=== PATIENT | female | born 1995 | race Caucasian/White ===

== ENCOUNTER 2021-01-05 14:15 | Outpatient (CLI) | payer OTHER, SELFPAY ==
[2021-01-05 19:16] LABS: Basophils Percent Auto 0.5 % (0.2-1.2); Eosinophils Absolute Auto 0.1 K/mm3 (0-0.3); Eosinophils Percent Auto 1.5 % (0-4.4); Hematocrit 39.3 % (37.0-47.0); Hemoglobin 13.7 g/dL (12.0-15.0); Immature Granulocyte Absolute 0.02 K/mm3 (0.00-0.031); Immature Granulocyte Percent A 0.2 % (0-0.5); Lymphocytes Absolute Auto 2.87 K/mm3 (0.9-3.2); Lymphocytes Percent Auto 33.4 % (18.3-44.2); Mean Corpuscular HGB Conc 34.9 g/dl (32-36); Mean Corpuscular Hemoglobin 31.6 pg (26-34); Mean Corpuscular Volume 90.6 fl (80-100); Mean Platelet Volume 9.2 fl (7.4-10.4); Monocytes Absolute Auto 0.5 K/mm3 (0.1-0.6); Monocytes Percent Auto 5.8 % (2.6-8.5); Neutrophils Percent Auto 58.6 % (45.5-73.1); Platelet Count Result 361 k/mm3 (150-375); Red Blood Count 4.34 M/mm3 (4.2-5.4); Red Cell Distribution Width 11.8 % (11.5-14.5); White Blood Count 8.6 K/mm3 (4.5-10.0)
[2021-01-05 19:22] LABS: Add Urine Microscopic? YES; Appearance Urine Cloudy (Clear); Bilirubin Urine Negative (Negative); Blood Urine Negative (Negative); Color Urine Yellow (Yellow); Glucose Urine UA Negative (Negative); Ketones Urine Negative (Negative); Leukocyte Esterase Ur Negative LEU/UL (NEGATIVE); Mucus Urine Rare /lpf; Nitrate Urine Negative (Negative); Protein Urine Negative (Negative); RBC Urine 0-2 /hpf (0-2); Specific Grav Ur 1.023 (1.001-1.035); Squamous Epithelial Cell Urine Many /hpf (Few); Urobilinogen Urine Negative mg/dL (<2.0); WBC Urine 0-3 /hpf (0-3)
[2021-01-05 22:34] LABS: Vitamin D 25 Hydroxy 17.8 ng/mL
[2021-01-05 22:47] LABS: Hepatitis B Surface Antigen Negative (Negative); Rubella IgG Antibody 11.2 IU/ML
[2021-01-05 22:56] LABS: HIV 1/2 Ab P24 Ag Result Negative (Negative)
[2021-01-05 23:04] LABS: Hepatitis C Virus Antibody Negative (Negative)
[2021-01-05 23:06] LABS: Hemoglobin A1C 5.9 % (<5.7)
[2021-01-07 15:38] LABS: Rapid Plasma Reagin Non-Reactive (NonReactive)
[2021-01-10 16:01] LABS: Hematocrit 43.5 % (35.0-45.0); Hemoglobin 13.7 g/dL (11.7-15.5); MCH 31.4 pg (27.0-33.0); MCV 99.5 fL (80.0-100.0); Red Blood Cell Count 4.37 Mill/uL (3.80-5.10)
[2021-01-16 11:44] LABS: CF Result NEGATIVE (NEGATIVE)
== END 2021-01-05 14:16 | disposition home or self-care (01) ==
LOC: ANHBWCLAB 14:16
PROVIDERS: Visit Provider Obstetrics & Gynecology
DX: Z34.90 Encounter for supervision of normal pregnancy, unspecified, unspecified trimester (principal); E11.9 Type 2 diabetes mellitus without complications; Z3A.00 Weeks of gestation of pregnancy not specified
CPT/HCPCS: 36415; 81001; 81220; 82306; 83021; 83036; 84443; 85025; 86592; 86703; 86762; 86787; 86803; 86850; 86900; 86901; 87086; 87340; G0432

== ENCOUNTER 2021-03-20 21:16 | Observation (INO) | payer OTHER, SELFPAY ==
[2021-03-20 21:47] VITALS: TEMP 36.6
[2021-03-20 21:48] VITALS: BP 119/58; PULSE 91
[2021-03-20 22:08] LABS: Add Urine Microscopic? YES; Appearance Urine Cloudy (Clear); Bacteria Urine Trace /hpf; Bilirubin Urine Negative (Negative); Blood Urine Negative (Negative); Calcium Oxalate Crystals Urine Many /hpf; Color Urine Yellow (Yellow); Glucose Urine UA Negative (Negative); Ketones Urine Negative (Negative); Leukocyte Esterase Ur 1+ LEU/UL (NEGATIVE); Mucus Urine Few /lpf; Nitrate Urine Negative (Negative); Protein Urine 1+ mg/dL (Negative); RBC Urine 0-2 /hpf (0-2); Squamous Epithelial Cell Urine Many /hpf (Few); Urobilinogen Urine Negative mg/dL (<2.0)
--- NOTE | 2021-03-20 22:19 | PC.NURSE ---
called Dr. Worthy notified pt admission for vaginal pressure and spotting. pt denies spotting at this time. and no contractions. UA result reported. SVE was ordered. if cervix closed, may discharge to home. follow up with Dr. Mahmood for culture result.
--- NOTE | 2021-04-10 09:52 | PM.OBTRLD ---
OB - Triage/Final Diagnosis Visit Information Comments/Additional reasons for admission: I have assessed the risk for this patient, Josiah Serrano, and determined that she would benefit from observation care. Evaluation Laboratory results: Laboratory Tests 03/20/21 21:50 Urine Color Yellow Urine Appearance Cloudy H Urine pH 5.0 Ur Specific [place] 1.030 Urine Protein 1+ H Urine Glucose (UA) Negative Urine Ketones Negative Ur Blood (Man) Negative Urine Nitrate Negative Urine Bilirubin Negative Urine Urobilinogen Negative Ur Leukocyte Esterase 1+ H Urine RBC 0-2 Urine WBC 10-15 H Ur Squamous Epith Cells Many H Calcium Oxalate Crystal Many Urine Bacteria Trace Urine Mucus Few H Final Diagnosis (1) Pelvic pressure in : Code(s): O26.899 - Other specified related conditions, unspecified trimester; R10.2 - Pelvic and perineal pain Status: Acute
== END 2021-03-20 22:40 | disposition home or self-care (01) ==
PROVIDERS: Admitting Provider Obstetrics & Gynecology; Visit Provider Obstetrics & Gynecology
DX: O26.892 Other specified pregnancy related conditions, second trimester (principal); R10.2 Pelvic and perineal pain; Z3A.21 21 weeks gestation of pregnancy
CPT/HCPCS: 81001; 87086; 87088; G0378; G0379

== ENCOUNTER 2021-04-18 15:05 | Outpatient (CLI) | payer OTHER, SELFPAY ==
[2021-04-18 19:54] LABS: Alanine Aminotransferase 12 U/L (4-35); Albumin Level 3.7 g/dL (3.5-5.1); Alkaline Phosphatase 65 U/L (38-126); Anion Gap 7 mmol/L (8-16); Aspartate Amino Transferase 18 U/L (14-36); Bilirubin,Total 0.3 mg/dL (0.2-1.3); Blood Urea Nitrogen 7 mg/dL (7-17); Calcium 9.8 mg/dL (8.4-10.2); Carbon Dioxide 22 mmol/L (22-30); Chloride 107 mmol/L (98-107); Estimated Glomerular Filt Rate > 60; Glucose 88 mg/dL (65-110); Potassium 4.1 mmol/L (3.4-5.0); Sodium 136 mmol/L (137-145)
[2021-04-18 20:01] LABS: Creatinine Urine 87.3 mg/dL; Total Protein Urine Random 6 mg/dL; Ur Ttl Prot Creatinine Ratio 0.07 mg/mg (0-0.20)
[2021-04-18 20:42] LABS: Hemoglobin A1C 5.2 % (<5.7)
== END 2021-04-18 15:06 | disposition home or self-care (01) ==
DX: O24.112 Pre-existing type 2 diabetes mellitus, in pregnancy, second trimester (principal); Z3A.23 23 weeks gestation of pregnancy
CPT/HCPCS: 36415; 80053; 82570; 83036; 84156; 84443

== ENCOUNTER 2021-05-11 14:53 | Outpatient (CLI) | payer OTHER, SELFPAY ==
[2021-05-11 19:11] LABS: Hematocrit 33.8 % (37.0-47.0); Hemoglobin 11.8 g/dL (12.0-15.0); Mean Corpuscular HGB Conc 34.9 g/dl (32-36); Mean Corpuscular Hemoglobin 31.6 pg (26-34); Mean Corpuscular Volume 90.6 fl (80-100); Mean Platelet Volume 9.9 fl (7.4-10.4); Platelet Count Result 291 k/mm3 (150-375); Red Blood Count 3.73 M/mm3 (4.2-5.4); Red Cell Distribution Width 12.5 % (11.5-14.5); White Blood Count 9.7 K/mm3 (4.5-10.0)
[2021-05-11 21:03] LABS: HIV 1/2 Ab P24 Ag Result Negative (Negative)
[2021-05-14 10:47] LABS: Rapid Plasma Reagin Non-Reactive (NonReactive)
== END 2021-05-11 14:54 | disposition home or self-care (01) ==
LOC: ANHBWCLAB 14:54
PROVIDERS: Visit Provider Obstetrics & Gynecology
DX: Z34.90 Encounter for supervision of normal pregnancy, unspecified, unspecified trimester (principal)
CPT/HCPCS: 36415; 85027; 86592; 86703; G0432

== ENCOUNTER 2021-06-20 12:12 | Observation (INO) | payer OTHER, SELFPAY ==
[2021-06-20 12:38] VITALS: BP 117/71; PULSE 106
[2021-06-20 13:24] LABS: Appearance Urine Clear (Clear); Bilirubin Urine Negative (Negative); Color Urine Yellow (Yellow); Glucose Urine UA 3+ mg/dL (Negative); Ketones Urine Negative (Negative); Leukocyte Esterase Ur Negative LEU/UL (Negative); Nitrate Urine Negative (Negative); Protein Urine Negative (Negative); Specific Grav Ur 1.025 (1.001-1.035); Urobilinogen Urine 0.2 mg/dL (<2.0)
[2021-06-20 13:27] LABS: Mucus Urine Rare /lpf; RBC Urine 0-2 /hpf (0-2); Squamous Epithelial Cell Urine Many /hpf (Few); WBC Urine 0-3 /hpf
[2021-06-20 13:28] LABS: Add Urine Microscopic? YES; Blood Urine Trace-Intact (Negative)
[2021-06-20 13:30] VITALS: TEMP 36.3
--- NOTE | 2021-06-20 14:00 | PC.NURSE ---
on unit, informed that pt came in for cramping. No contractions noted, UA WNL. NST reactive. Pt has an appt with tomorrow. Discharge orders received.
--- NOTE | 2021-06-20 14:03 | OBADM ---
This patient, Josiah Serrano, admitted to the OB room OB Post 115 for observation. Patient/family oriented to hospital policies and general routines including ID bracelet, bed and alarms, visiting hours, pain management, procedures, bathroom and other care routines, personal items, smoking policy, room service/diet, and visiting hours. Patient/Family are encouraged to report perceived risks to care and to ask questions if they do not understand what they are told or what they should do.
--- NOTE | 2021-07-10 09:47 | PM.OBTRLD ---
OB - Triage/Final Diagnosis Visit Information Comments/Additional reasons for admission: I have assessed the risk for this patient, Josiah Serrano, and determined that she would benefit from observation care. Evaluation Laboratory results: Laboratory Tests 06/20/21 13:05 Urine Color Yellow Urine Appearance Clear Urine pH 6.0 Ur Specific [place] 1.025 Urine Protein Negative Urine Glucose (UA) 3+ H Urine Ketones Negative Ur Blood (Man) Trace-intact Urine Nitrate Negative Urine Bilirubin Negative Urine Urobilinogen 0.2 Leukocyte Esterase Rfl Negative Urine RBC 0-2 Urine WBC 0-3 Ur Squamous Epith Cells Many H Urine Mucus Rare Final Diagnosis (1) Cramping affecting , antepartum: Code(s): O26.899 - Other specified related conditions, unspecified trimester; R10.9 - Unspecified abdominal pain Status: Acute
== END 2021-06-20 14:00 | disposition home or self-care (01) ==
PROVIDERS: Admitting Provider Student in an Organized Health Care Education/Training Program; Visit Provider Student in an Organized Health Care Education/Training Program
DX: O26.893 Other specified pregnancy related conditions, third trimester (principal); R10.9 Unspecified abdominal pain; Z3A.34 34 weeks gestation of pregnancy
CPT/HCPCS: 81001; G0378; G0379

== ENCOUNTER 2021-07-08 13:47 | Outpatient (RCR) | payer OTHER, SELFPAY ==
[2021-06-24 14:07] VITALS: BP 103/58; PULSE 87
[2021-07-01 15:03] VITALS: BP 112/63; PULSE 102
== END 2021-08-15 23:59 | disposition home or self-care (01) ==
LOC: ANHOBOP 13:47
PROVIDERS: Visit Provider Student in an Organized Health Care Education/Training Program
DX: O36.8130 Decreased fetal movements, third trimester, not applicable or unspecified (principal); Z3A.29 29 weeks gestation of pregnancy; O24.913 Unspecified diabetes mellitus in pregnancy, third trimester; Z3A.34 34 weeks gestation of pregnancy; Z3A.35 35 weeks gestation of pregnancy; Z3A.36 36 weeks gestation of pregnancy
CPT/HCPCS: 59025

== ENCOUNTER 2021-07-14 17:10 | Outpatient (CLI) | payer OTHER, SELFPAY ==
[2021-07-14 17:48] VITALS: BP 125/65; PULSE 95
== END 2021-07-14 17:48 | disposition home or self-care (01) ==
LOC: ANHOBOP 17:40 → ANHOBPP 17:41
PROVIDERS: Visit Provider Student in an Organized Health Care Education/Training Program
DX: O42.90 Premature rupture of membranes, unspecified as to length of time between rupture and onset of labor, unspecified weeks of gestation (principal); Z3A.00 Weeks of gestation of pregnancy not specified
CPT/HCPCS: 59025; 84112; 99199

== ENCOUNTER 2021-07-19 09:14 | Inpatient (IN) | payer OTHER, SELFPAY ==
--- NOTE | 2021-06-30 13:06 | PC.NURSE ---
Patient states baby is breech--Has an appointment with Dr Marlow on Saturday to make decision on external version or C/S Patient given pre-op paper work and requisition for pre-op lab draw
[2021-07-19] VITALS (112 sets, daily range): BP systolic 56–144; BP diastolic 26–125; PULSE 73–125; RESP 15–20; TEMP 36.1–37.2; O2SAT 92–100; BMI 45.4
--- NOTE | 2021-07-19 09:27 | PC.NURSE ---
Dr. Marlow called to check on pt. She was just informed by [facility] that they had sent the pt to L&D. Informed MD that pt has only been on the monitor for 5 mins, but so far I have FHT's 130 with moderate variability and one 15 beat accel. would like me to contact anesthesia to discuss possible available times for a C/S and then call her back so she can arrange her office as she is in the [place] office today.
--- NOTE | 2021-07-19 09:32 | PC.NURSE ---
Spoke with Dr. Skelton regarding this pt and he stated 1100 or 1330 would be better for anesthesia than 1200.
--- NOTE | 2021-07-19 09:33 | PC.NURSE ---
Dr. Marlow informed of offered C/S times. Also informed baby currently has minimal variability, no accels, and no decels. Plan is for 1100 then unless baby needs to come out sooner.
--- NOTE | 2021-07-19 09:39 | PC.NURSE ---
Dr. Marlow informed that when I told the pt the plan for doing her C/S at 1100 she became tearful because the father of baby is OOT and trying to get back here, but won't be here until noon. Variability still minimal at present. MD doesn't feel it is in baby's best interest to wait for him to arrive. Discussed with pt that it is much better to make sure that baby comes out healthy now, than to wait and wished we hadn't. Pt and father of baby verbalize understanding.
--- NOTE | 2021-07-19 10:00 | LDADM ---
This patient, Josiah Serrano, was admitted to Labor/Delivery/Recovery 120 on 07/19/21 at 09:14. Plans for surgery/ and pain management were discussed with patient. Patient/family oriented to hospital policies and general routines including ID bracelet, bed and alarms, visiting hours, pain management, procedures, bathroom and other care routines, personal items, smoking policy, room service/diet and guest tray routines, infant security routines, and visiting hours. Patient/Family are encouraged to report perceived risks to care and to ask questions if they do not understand what they are told or what they should do. See OBIX for further documentation.
--- NOTE | 2021-07-19 10:03 | PC.NURSE ---
Dr. Marlow informed baby now has moderate variability again with accels. states she has already cleared her office appointments for the morning and is on her way in. She will make a decision on whether we can wait to do C/S when she gets here.
[2021-07-19] MEDS: LACTATED RINGERS 1,000 ML 125 ML IV CONT (10:05)
[2021-07-19 10:21] LABS: Basophils Percent Auto 0.4 % (0.2-1.2); Eosinophils Absolute Auto 0.1 K/mm3 (0-0.3); Eosinophils Percent Auto 1.4 % (0-4.4); Hematocrit 37.9 % (37.0-47.0); Immature Granulocyte Absolute 0.07 K/mm3 (0.00-0.031); Immature Granulocyte Percent A 0.7 % (0-0.5); Lymphocytes Absolute Auto 2.45 K/mm3 (0.9-3.2); Lymphocytes Percent Auto 23.8 % (18.3-44.2); Mean Corpuscular HGB Conc 34.3 g/dl (32-36); Mean Corpuscular Hemoglobin 31.3 pg (26-34); Mean Corpuscular Volume 91.3 fl (80-100); Mean Platelet Volume 9.8 fl (7.4-10.4); Monocytes Absolute Auto 0.6 K/mm3 (0.1-0.6); Monocytes Percent Auto 6.1 % (2.6-8.5); Neutrophils Percent Auto 67.6 % (45.5-73.1); Platelet Count Result 265 k/mm3 (150-375); Red Blood Count 4.15 M/mm3 (4.2-5.4); Red Cell Distribution Width 12.9 % (11.5-14.5); White Blood Count 10.3 K/mm3 (4.5-10.0)
--- NOTE | 2021-07-19 10:28 | PC.NURSE ---
Dr. Marlow in room to see pt and reviewed monitor tracing. MD KELLY with delaying C/S for father of baby to arrive for delivery.
--- NOTE | 2021-07-19 10:31 | WPDANESEPPF ---
Anes - Initial Pre Proc Eval Procedure: Operation Date: 07/26/21 07:30 Proposed Procedures p Section - Zaina Marlow MD Date/Time: 07/19/21 10:31 Surgeon: Zaina Marlow MD Pre Op Diagnosis: C/S Breech Patient Data Age: 25 Gender: F Height: 1.57 m Weight: 112.7 kg Last Vital Signs Pulse 110 H 07/19/21 10:31 BP 111/70 07/19/21 10:31 Pulse Ox 99 07/19/21 10:18 Allergies Allergy/AdvReac Type Severity Reaction Status Date / Time insulin lispro Allergy Intermediate Rash Verified 07/13/21 15:20 [From Humalog U-100 Insulin] Home Medications Medication Instructions Recorded Confirmed Type prenat.vits,leti,awt-poqn-hhmxw 1 tablet PO DAILY 01/05/21 06/24/21 History flash glucose scanning reader #1 ea 02/23/21 05/11/21 Rx flash glucose sensor #1 ea 02/23/21 05/11/21 Rx aspirin 81 mg chewable tablet 81 mg PO DAILY 04/18/21 06/24/21 History subcutaneous insulin pump 04/18/21 05/11/21 History fluticasone propionate 2 spray INTRANASAL BID PRN 06/24/21 06/24/21 History hydroxyzine HCl 25 mg PO HS 06/24/21 06/24/21 History insulin aspart U-100 [Novolog See Rx Instructions .ROUTE .COMPLEX 06/24/21 History U-100 Insulin aspart] Laboratory Tests 07/19/21 07/19/21 10:15 10:15 WBC 10.3 K/mm3 H K/mm3 (4.5-10.0) RBC 4.15 M/mm3 L M/mm3 (4.2-5.4) Hgb 13.0 g/dL g/dL (12.0-15.0) Hct 37.9 % % (37.0-47.0) MCV 91.3 fl fl (80-100) MCH 31.3 pg pg (26-34) MCHC 34.3 g/dl g/dl (32-36) RDW 12.9 % % (11.5-14.5) Plt Count 265 k/mm3 k/mm3 (150-375) MPV 9.8 fl fl (7.4-10.4) Immature Gran % (Auto) 0.7 % H % (0-0.5) Neut % (Auto) 67.6 % % (45.5-73.1) Lymph % (Auto) 23.8 % % (18.3-44.2) [place] % (Auto) 6.1 % % (2.6-8.5) Eos % (Auto) 1.4 % % (0-4.4) Baso % (Auto) 0.4 % % (0.2-1.2) Lymph # (Auto) 2.45 K/mm3 K/mm3 (0.9-3.2) [place] # (Auto) 0.6 K/mm3 K/mm3 (0.1-0.6) Eos # (Auto) 0.1 K/mm3 K/mm3 (0-0.3) Baso # (Auto) 0.0 K/mm3 K/mm3 (0.0-0.1) Abs Immat Gran (auto) 0.07 K/mm3 H K/mm3 (0.00-0.031) Absolute Neuts (auto) 7.0 K/mm3 H K/mm3 (1.3-6.7) Absolute Nucleated RBC 0.0 K/mm3 K/mm3 (0.0-0.012) Nucleated RBC % 0.0 % % (0.0-0.2) RPR Pending Patient hx anesthesia problems: none Family hx anesthesia problems: none Results Review: All pre-operative results and documents have been reviewed as part of the pre-operative evaluation. [facility] Past Medical History Medical History Asthma Diabetes mellitus type 2 Ectopic x1 Missed x1 Surgical History Surgical History History of toe surgery for ingrown nail Family History Family History Mother Diabetes mellitus Social History Social History Smoking status: Never smoker Alcohol intake: never Substance use: never Spiritual care concerns: No Anes - Eval Final PreProcedure Day of Procedure 07/19/21 10:31 Patient weight: morbidly obese Heart: regular rate and rhythm Lungs: clear to auscultation Airway: Mallampati scale class II Neurological: alert and oriented Last oral intake: >/= 8 hours ASA classification: III Emergent: no Anesthetic plan: proceed Anesthesia type and monitoring: regional spinal and standard monitoring Results Review: All pre-operative results and documents have been reviewed as part of the pre-operative evaluation. Informed Consent: The patient's anesthetic plan and its attendant risks and benefits were discussed with the patient/family/POA. Questions were solicited and answers provided to the satisfaction of the patient/family/POA.
--- NOTE | 2021-07-19 12:09 | PM.IMHP ---
H&P: HPI History of Present Illness Date/Time: 07/19/21 12:09 Patient is a 25-year-old LMP 10/23/2020 currently 38 weeks 3 days gestation with JACOB 07/30/2021 who presented to labor and delivery directly from [facility]. Patient is dated by LMP consistent with ultrasound on 01/10/2021 at 11 weeks gestation. Patient has history of pregestational type 2 diabetes currently on insulin as well as morbid obesity. Patient was seen by [facility] today for routine testing. BPP was performed and was 4/8. Recommendation made for delivery today. Fetus also remains in breech presentation. In general, patient doing well today. Denies any vaginal bleeding, leakage of fluid, or contractions. Reports good movement. Chief Complaint: Intrauterine at 38w3d gestation Nonreassuring testing Pregestational Type II DM Breech presentation Obesity Review of Systems Review of Systems: All systems reviewed & are unremarkable except as noted in HPI and below Constitutional: Constitutional: Reports as per HPI and Reports no additional constitutional complaints Eyes: Eyes: Reports as per HPI and Reports no additional eye complaints ENT: Reports system reviewed and no additional complaints, except as documented and Reports as per HPI Cardiovascular: Cardiovascular: Reports as per HPI and Reports no additional cardiovascular complaints Respiratory: Respiratory: Reports as per HPI and Reports no additional respiratory complaints Gastrointestinal: Gastrointestinal: Reports as per HPI and Reports no additional gastrointestinal complaints Genitourinary: Genitourinary: Reports no additional female genitourinary complaints and Reports as per HPI Musculoskeletal: Musculoskeletal: Reports no additional musculoskeletal complaints and Reports as per HPI Integumentary/Breasts: Skin/Breast: Reports system reviewed and no additional complaints, except as docu and Reports as per HPI Neurologic: Reports system reviewed and no additional complaints, except as documented and Reports as per HPI Psychiatric: Psychiatric: Reports no additional psychiatric complaints and Reports as per HPI Endocrine: Endocrine: Reports no additional endocrine complaints and Reports as per HPI Hematologic/Lymphatic: Hematologic/Lymphatic: Reports no additional hematologic/lymphatic complaints and Reports as per HPI Allergic/Immunologic: Allergic/Immunologic: Reports no additional allergic/immunologic complaints and Reports as per HPI PMFSH Past Medical History Medical History Asthma Diabetes mellitus type 2 Ectopic x1 Missed x1 Surgical History Surgical History History of toe surgery for ingrown nail Family History Family History Mother Diabetes mellitus Social History Social History Smoking status: Never smoker Second hand tobacco smoke exposure: No Alcohol intake: never Substance use: never Spiritual care concerns: No Meds Home Medications and Allergies Home Medications Medication Instructions Recorded Confirmed Type prenat.vits,leti,iym-qeza-gomdv 1 tablet PO DAILY 01/05/21 07/19/21 History flash glucose scanning reader #1 ea 02/23/21 07/19/21 Rx flash glucose sensor #1 ea 02/23/21 07/19/21 Rx aspirin 81 mg chewable tablet 81 mg PO DAILY 04/18/21 07/19/21 History subcutaneous insulin pump 04/18/21 07/19/21 History hydroxyzine HCl 25 mg PO HS 06/24/21 07/19/21 History insulin aspart U-100 [Novolog See Rx Instructions .ROUTE .COMPLEX 06/24/21 07/19/21 History U-100 Insulin aspart] triamcinolone acetonide See Rx Instructions .ROUTE .COMPLEX 07/19/21 07/19/21 History Allergies Allergy/AdvReac Type Severity Reaction Status Date / Time insulin lispro Allergy Intermediate Rash Verified
[2021-07-19] MEDS: LACTATED RINGERS 1,000 ML 999 ML IV CONT (12:20)
--- NOTE | 2021-07-19 12:20 | WPDHPUPDATE1 ---
History and Physical Update Update Date/Time: 07/19/21 12:20 History and Physical has been reviewed, including an updated exam of the patient. There are NO changes in the patient's condition. Risks, benefits, and alternatives have been discussed and questions answered. Patient agrees to proceed with procedure.
--- NOTE | 2021-07-19 12:43 | PC.NURSE ---
Dr. Ivey confirmed breech presentation by U/S
--- NOTE | 2021-07-19 12:45 | PC.NURSE ---
Blood sugar 100 per Dexcom. Dexcom and insulin pump removed from abdomen.
[2021-07-19] MEDS: ceFAZolin 2 GM/D5W 50 ML 2 GM/50 ML BAG IVPB (13:28)
[2021-07-19] MEDS: KETOROLAC 30 MG/ML VIAL (*BKC) IV PUSH (14:45)
--- NOTE | 2021-07-19 16:12 | W.PM.PROC2 ---
Procedure Note - Detailed Date of Procedure 07/19/21 Pre-op Diagnosis Intrauterine gestation at 38w3d gestation Nonreassuring testing Breech presentation Pregestational Type II DM requiring insulin Obesity Post-op Diagnosis Same Procedure Performed Primary low transverse section via Pfannenstiel Surgeon Zaina Marlow MD Glass Science Engineer Concetta Ordoñez Anesthesia Spinal Findings Live male infant in double footling breech presentation, apgars 9/9, weighing 7 lbs 2 oz, clear amniotic fluid; heart-shaped uterus, possibly bicornuate, normal appearing ovaries and fallopian tubes bilaterally Description of Procedure The patient was taken to the operating room, where she self-transferred to the operating room table. Spinal anesthesia was administered and found to be adequate. The patient was placed in dorsal supine position with a leftward tilt. She was prepped and draped in the usual sterile fashion. Spinal anesthesia was tested and found to be adequate. A Pfannenstiel skin incision was made with a scalpel and carried through to underlying layer of fascia with the Bovie. The fascia was incised in the midline and the incision was extended laterally with the use of forceps and Chin scissors. The inferior aspect of the fascial incision was grasped with Nerissa clamps, elevated, and the underlying rectus muscle were dissected off with Chin scissors. Attention was then turned to the superior aspect of the fascial incision, which in a similar manner, was grasped with Nerissa clamps, elevated, and the underlying rectus muscles were also dissected off with Chin scissors. The rectus muscles were in the midline and the peritoneal cavity was entered bluntly. This incision was extended superiorly and inferiorly with good visualization of the bladder and care was taken to avoid blood vessels. An Zi retractor was inserted into the abdominal cavity and rolled to increase visualization. A bladder blade was inserted. The vesicouterine peritoneum was identified and incised sharply with Metzenbaum scissors. This incision was extended laterally with Metzenbaum scissors and a bladder flap was created digitally. The bladder blade was replaced. A low-transverse uterine incision was made with a scalpel. This incision was extended laterally with bandage scissors. Amniotomy was performed. Clear amniotic fluid was noted. The infant was noted to be in double footling breech presentation. Both feet were delivered through the uterine incision followed by the infant's buttocks. A blue towel was wrapped around and was slowly guided through incision to level of the scapulae. The was gently rotated to the left and the right upper extremity was delivered. The was then rotated to the right and similarly, the left upper extremity was delivered. The infant's head was gently flexed and delivered easily and atraumatically without difficulty. The 's nose and mouth were suctioned with bulb suction. The infant was crying spontaneously. The cord was clamped and cut and the infant was handed off to awaiting nursing staff. A segment of cord was collected for cord gases. Cord blood was also collected. The placenta was then delivered manually with gentle uterine massage. Uterus was unable to be exteriorized and cleared of all clots and debris. The uterine incision was reapproximated with 0 Vicryl in a running, locked fashion. A second imbricating layer using 0 Monocryl performed. Excellent hemostasis was noted. On inspection, the uterus appeared to be heart shaped. The ovaries and fallopian tubes appeared to be normal bilaterally. The gutters were cleared of all clots and debris. The uterine incision was inspected again and noted to be hemostatic. Hemaderm was applied across the uterine incision. Interceed was also applied across the uterine incision and anterior surface of the uterus. The peritoneum was reapproximated with 2-0 Monocryl. The fascia was then closed wit
--- NOTE | 2021-07-19 16:17 | PM.OBPRVD ---
OB - Delivery Note Procedure Delivery date: 07/19/21 Procedure: Procedures Operation Date: 07/19/21 12:45 Actual Procedure Side Surgeon p Section Zaina Marlow MD Events: Diabetes Mellitus Route of delivery: Prior to decision for section, ACOG/SMFM labor guidelines were considered and discussed with the patient and staff. Decision made to proceed with the section.: Yes Specimen: Yes (placenta and cord, cord blood and cord gases) Quantitative Blood Loss (ml): 430 Anesthesia type: Spinal Disposition: Floor Complications: No immediate complications [place] Baby Date of : 07/19/21 Time of : 14:18 Weeks of gestation at delivery: 38 (38.3) gender: Male Weight (pounds): 7 Weight (ounces): 2 presentation: breech (double footling breech) Placenta delivery description: Manual Removal Cord Vessel Description: 3 Vessels score one minute: 9 score five minutes: 9 AMG Delivery Billing Delivery Delivery: Delivery Charge
--- NOTE | 2021-07-19 16:21 | SUR.OPER ---
BP inaccurate and reads low with pt bending arm that has BP cuff on it while holding infant
[2021-07-19 16:51] LABS: Glucose Point of Care 95 mg/dl (65-105)
[2021-07-19] MEDS: fentaNYL CITRATE INJ (*CRX) 100 MCG/2 ML VIAL 25 MCG IV PUSH (17:29)
[2021-07-20 03:50] VITALS: BP 108/55; PULSE 95; RESP 16; TEMP 36.9
[2021-07-20 05:07] LABS: Basophils Percent Auto 0.3 % (0.2-1.2); Eosinophils Absolute Auto 0.1 K/mm3 (0-0.3); Eosinophils Percent Auto 1.1 % (0-4.4); Hematocrit 31.1 % (37.0-47.0); Hemoglobin 10.5 g/dL (12.0-15.0); Immature Granulocyte Absolute 0.05 K/mm3 (0.00-0.031); Immature Granulocyte Percent A 0.4 % (0-0.5); Lymphocytes Absolute Auto 2.04 K/mm3 (0.9-3.2); Lymphocytes Percent Auto 17.9 % (18.3-44.2); Mean Corpuscular HGB Conc 33.8 g/dl (32-36); Mean Corpuscular Hemoglobin 31.7 pg (26-34); Mean Platelet Volume 10.1 fl (7.4-10.4); Monocytes Absolute Auto 0.7 K/mm3 (0.1-0.6); Neutrophils Absolute Auto 8.5 K/mm3 (1.3-6.7); Neutrophils Percent Auto 74.3 % (45.5-73.1); Platelet Count Result 197 k/mm3 (150-375); Red Blood Count 3.31 M/mm3 (4.2-5.4); White Blood Count 11.4 K/mm3 (4.5-10.0)
[2021-07-20] MEDS: HYDROcodone/acetaminophen (*CRX) 5-325 MG TABLET 1 TAB PO (05:50)
[2021-07-20] MEDS: IBUPROFEN 600 MG TABLET PO ×3 (05:51→21:23)
[2021-07-20 07:25] VITALS: BP 96/50; PULSE 88; RESP 18; TEMP 37; O2SAT 98
[2021-07-20] MEDS: MULTIVIT/MIN/PREN/FOL AC/IRON TABLET 1 TAB PO (09:41)
[2021-07-20] MEDS: HYDROcodone/acetaminophen (*CRX) 10-325 MG TABLET 1 TAB PO ×3 (09:41→21:22)
[2021-07-20] MEDS: DOCUSATE SODIUM 100 MG CAPSULE PO ×2 (09:41→17:11)
--- NOTE | 2021-07-20 09:51 | WPDANLDPN2 ---
Anes-Prog Note L&D Date/Time: 07/20/21 09:51 Comfortable throughout: section Neuraxial method: spinal Epidural/Spinal procedure site: clean & non-tender Neuro status: Neuro function grossly intact. Cardiovascular status: normal Respiratory status: normal Airway patency: baseline Mental status: baseline Post-Op hydration status: normal Vital Signs: Last Vital Signs Temp 37.0 C 07/20/21 07:25 Pulse 88 07/20/21 07:25 Resp 18 07/20/21 07:25 BP 96/50 L 07/20/21 07:25 Pulse Ox 98 07/20/21 07:25 Pain score (VAS): 03/20 I/O: Intake & Output 07/19/21 07/20/21 07/20/21 23:59 07:59 15:59 Intake Total 900 Output Total 200 700 900 Balance -200 -700 0 Post-procedural complaints: none Patient feedback: Patient satisfied with anesthetic care.
--- NOTE | 2021-07-20 09:51 | WPDANLDNPN2 ---
Anes-Prog Note L&D-Neuraxial Date/Time: 07/20/21 09:51 Neuraxial medications: intrathecal PF morphine Opiod-related complaints: none Patient feedback: Patient satisfied with post-operative pain management.
--- NOTE | 2021-07-20 11:20 | P.PNOB_ITS ---
OB - PN: Subj Subjective Date/time seen: 07/20/21 11:20 Patient doing well this morning. Pain well controlled with medication. Denies any headache, chest pain, shortness of breath, nausea, or vomiting. Tolerating PO diet. Antonio catheter removed this morning. Patient has not yet voided. No ambulation yet. Passage of small amount of flatus. Minimal lochia. OB - PN: Obj Data Labs CBC & Chem 7: 07/20/21 04:00 Labs: Laboratory Results - last 24 hr 07/19/21 07/20/21 16:34 04:00 WBC 11.4 H RBC 3.31 L Hgb 10.5 L Hct 31.1 L MCV 94.0 MCH 31.7 MCHC 33.8 RDW 13.0 Plt Count 197 MPV 10.1 Immature Gran % (Auto) 0.4 Neut % (Auto) 74.3 H Lymph % (Auto) 17.9 L [place] % (Auto) 6.0 Eos % (Auto) 1.1 Baso % (Auto) 0.3 Lymph # (Auto) 2.04 [place] # (Auto) 0.7 H Eos # (Auto) 0.1 Baso # (Auto) 0.0 Abs Immat Gran (auto) 0.05 H Absolute Neuts (auto) 8.5 H Absolute Nucleated RBC 0.0 Nucleated RBC % 0.0 POC Capillary Glucose 95 OB - PN A/P Assessment and Plan (1) delivery delivered: Code(s): O82 - Encounter for delivery without indication Status: Acute Assessment and Plan: POD#1 doing well continue routine postoperative care encourage ambulation and use of IS declines circ Time Spent With Patient Time: Total time spent is greater than 50% in coordination of care (as documented) at patient's floor/unit and/or counseling patient: Exam Const: General: cooperative, comfortable and no acute distress GI: Inspection: non-distended and obesity GI Palp: Yes Soft to palpation and No Tenderness to palpation present (GI) Other: inc covered with bandage, bandage c/d/i Extrem: Right lower extremity: no edema Left lower extremity: no edema Other: no calf tenderness
[2021-07-20 12:04] VITALS: BP 128/68; PULSE 93; RESP 16; TEMP 36.5; O2SAT 97
[2021-07-20 21:25] VITALS: BP 107/65; PULSE 101; RESP 16; TEMP 36.5
[2021-07-21] MEDS: IBUPROFEN 600 MG TABLET PO ×3 (05:11→23:44)
[2021-07-21] MEDS: HYDROcodone/acetaminophen (*CRX) 10-325 MG TABLET 1 TAB PO ×5 (05:12→23:44)
[2021-07-21 06:29] LABS: Rapid Plasma Reagin Non-Reactive (NonReactive)
[2021-07-21 08:55] VITALS: BP 114/70; PULSE 88; RESP 18; TEMP 36.2; O2SAT 99
[2021-07-21] MEDS: MULTIVIT/MIN/PREN/FOL AC/IRON TABLET 1 TAB PO (09:17)
[2021-07-21] MEDS: DOCUSATE SODIUM 100 MG CAPSULE PO ×2 (09:18→15:27)
--- NOTE | 2021-07-21 10:17 | PM.OBPNVD ---
OB - PN: Subj Subjective Date/time seen: 07/21/21 10:17 Patient doing well this morning. Reports more pain today after pain medication wore off yesterday. Reasonably controlled with medication. Denies any headache, chest pain, shortness of breath, nausea, or vomiting. Tolerating PO diet. Voiding well. Ambulating without difficulty. Passing flatus. Minimal lochia. OB - PN: Obj Data Labs CBC & Chem 7: 07/20/21 04:00 Labs: Laboratory Results - last 24 hr 07/19/21 10:15 RPR Non-reactive OB - PN A/P Assessment and Plan (1) delivery delivered: Code(s): O82 - Encounter for delivery without indication Status: Acute Assessment and Plan: POD#2 doing well continue routine postoperative care encourage ambulation and use of IS anticipate dc tomorrow as pt would like further instruction and support Time Spent With Patient Time: Total time spent is greater than 50% in coordination of care (as documented) at patient's floor/unit and/or counseling patient: Exam Const: General: cooperative, healthy appearing, comfortable and no acute distress GI: Inspection: non-distended and obesity GI Palp: Yes Soft to palpation and No Tenderness to palpation present (GI) Other: inc c/d/i Extrem: Right lower extremity: no edema Left lower extremity: no edema Other: no calf tenderness
[2021-07-21 19:25] VITALS: BP 124/57; PULSE 98; RESP 16; TEMP 36.3
--- NOTE | 2021-07-22 06:35 | PM.OBPNVD ---
OB - PN: Subj Subjective Date/time seen: 07/22/21 06:35 She had decrease lochia. She reports adequate pain control. Tolerating regular diet. Positive flatus. Ambulating without problems. She is pumping mostly now. OB - PN: Obj Data Labs CBC & Chem 7: 07/20/21 04:00 OB - PN A/P Assessment and Plan (1) delivery delivered: Code(s): O82 - Encounter for delivery without indication Status: Acute Assessment and Plan: POD3- doing well. Discharge to home. Discharge precautions discussed. Time Spent With Patient Time: Total time spent is greater than 50% in coordination of care (as documented) at patient's floor/unit and/or counseling patient: Exam Const: General: comfortable and no acute distress Resp: Effort & Inspection: normal respiratory effort GI: Other: incision healing well no drainage, intact, no erythema Extrem: Other: tr edema LE bilat, nontender bilat Psych: Mental Status: mental status grossly normal Affect: normal affect
[2021-07-22] MEDS: DOCUSATE SODIUM 100 MG CAPSULE PO (07:53)
[2021-07-22] MEDS: MULTIVIT/MIN/PREN/FOL AC/IRON TABLET 1 TAB PO (07:53)
[2021-07-22] MEDS: HYDROcodone/acetaminophen (*CRX) 10-325 MG TABLET 1 TAB PO (07:53)
[2021-07-22] MEDS: SIMETHICONE 80 MG TAB.CHEW PO (07:53)
[2021-07-22] MEDS: IBUPROFEN 600 MG TABLET PO (07:54)
[2021-07-22 09:00] VITALS: BP 120/60; PULSE 70; PULSE 98; RESP 16; TEMP 36.8; O2SAT 99
[2021-07-24 10:29] VITALS: BP 110/60; PULSE 94; RESP 20; TEMP 36.8; O2SAT 97
--- NOTE | 2021-08-11 17:27 | PM.OBDSVD ---
DS: Admitting Diagnosis Discharge Date 07/22/21 Admitting Diagnosis Non reassuring testing Breech presentation OB - DS: Summary OB Procedures : None OB Procedures Intrapartum: OB Procedures: : None Peripartum Data Procedures: Procedures Operation Date: 07/19/21 12:45 Actual Procedure Side Surgeon p Section Zaina Marlow MD Time Spent with Patient Time attestation: Total time spent providing and/or coordinating discharge services: DS: Data Data Completed and Pending Completed studies during hospitalization: Pending at discharge 07/19/21 15:21 Surgical [PTH] Routine Discharge Plan Discharge Attending physician on discharge: Zaina Marlow Consulting providers: Duran Skelton ; Delisa Hall Discharging Clinician: Jeronimo Worthy Anticipated Discharge Date/Time: 07/22/21 06:39 Patient Disposition: Home, Self-Care Activity: may shower, may drive after 2 weeks and pelvic rest Diet: regular Discharge Instructions: Education: Mom and Baby Guide Given to: Mother Follow-Up: Call your delivering provider's office for an appointment to be seen in: 2 Weeks Mom and baby should come to the [facility] for the follow-up appointment. Appointment Date/Time: July 24, 2021 at 10:00 am What to expect at your follow-up visit: Blood Pressure Check Physical Assessment Call [phone] if you are unable to keep your appointment time. BREAST CARE: * Wear a snug supportive bra. * For engorgement discomfort: Breast Feeding: * Apply warm moist washcloths * Express milk as needed to relieve engorgement * Wear loose clothing Bottle Feeding: * May apply ice packs * For sore nipples: * Identify correct latch-on * Apply warm moist washcloths before and after nursing * Air dry nipples after nursing * May apply Lansinoh cream to nipples ABDOMINAL INCISION: (if applicable) * Allow incision to air dry * Do NOT use lotions for powders on your incision * When showering, allow soap and water to run over the incision, but do not wash incision EPISIOTOMY/PERINEAL CARE: * Until bleeding stops, use your roman bottle after urinating * Change your pad frequently throughout the day * No tub baths until seen by your physician - You may shower ACTIVITY: * Rest as much as possible. * Do not exercise or lift anything heavier than your baby (such as laundry or other children.) * Avoid stairs or driving as much as possible for 2 weeks. * Do not put anything into the vagina. No douching, tampons, or sexual activity until seen by physician. NOTIFY PHYSICIAN IF YOU HAVE ANY QUESTIONS OR IF ANY OF THE FOLLOWING SYMPTOMS OCCUR: * If your incision becomes red, swollen, or more painful than what you have experienced in the hospital. * If your vaginal bleeding becomes foul smelling. * If your vaginal bleeding becomes more heavy than a period or if your bleeding changes from the color it is now to bright red. However, you may pass an occasional walnut-sized clot once or twice for the first week . * If you experience a sharp, shooting pain in your calves. * If you discover a hard, reddened area on your breast or if you experience flu-like symptoms. DIET: * Eat regular, well-balanced meals. * Drink plenty of fluids daily. If , drink to thirst. Post instruction sheet. Pelvic rest for 4-6 weeks. May take over the counter Ibuprofen or Tylenol for pain. Call if saturating more than a pad an hour, leg redness, pain and swelling, temperature>100.4. No strenuous activity. Patient Instructions: Caring for Your Baby (DC), (DC) Stand Alone Forms: General Discharge Information Follow-up/Referrals: Zaina Marlow MD [Physician] - 2 Weeks (Call for appointment) Discharge Medications: New hydrocodone-acetaminop
== END 2021-07-22 12:00 | disposition home or self-care (01) | DRG 540 ==
LOC: ANHLDR 10:07 → ANHOB2 07-20 09:56 → ANHLDR 07-24 11:37 → ANHOB2 07-24 11:37
PROVIDERS: Admitting Provider Student in an Organized Health Care Education/Training Program; Visit Provider Obstetrics & Gynecology
DX: O32.8XX0 Maternal care for other malpresentation of fetus, not applicable or unspecified (principal); Z37.0 Single live birth; Z3A.38 38 weeks gestation of pregnancy; O24.12 Pre-existing type 2 diabetes mellitus, in childbirth; O99.214 Obesity complicating childbirth; E66.01 Morbid (severe) obesity due to excess calories; O34.03 Maternal care for unspecified congenital malformation of uterus, third trimester; Q51.3 Bicornate uterus; O99.892 Other specified diseases and conditions complicating childbirth; O28.8 Other abnormal findings on antenatal screening of mother
CPT/HCPCS: 36415; 82948; 85025; 86592; 86850; 86900; 86901; 88307; A9270; J0131; J0690; J1885; J2274; J2405; J2590; J3010; J7120

== ENCOUNTER 2021-08-04 19:28 | Emergency (ER) | payer OTHER, SELFPAY ==
[2021-08-04 19:30] VITALS: BP 133/73; PULSE 81; RESP 18; TEMP 36.3; O2SAT 100
[2021-08-04 20:11] LABS: Glucose Point of Care 85 mg/dl (65-105)
--- NOTE | 2021-08-04 20:45 | ED.WOUNDLAC ---
HPI - Wound/Laceration General Chief Complaint: Wound/Laceration Stated Complaint: July 19 csection, concerned for infection at site Time Seen by Provider: 08/04/21 19:38 History of Present Illness HPI narrative: Patient is a 25-year-old female who presents ER with concerns for infection of the scar. Patient has section on 07/19/2021. Her service advocate contact is Dr. Marlow. She noticed recently a foul odor and discharge from the area. Mild discomfort to touch. No fevers or chills or sweats. Concerned there is been some drainage as well. No abdominal pain/nausea/vomiting. Reports mild dysuria without urinary frequency or urgency. Still has some lochia since the delivery. Patient is a type II diabetic but has not been checking her sugars. Related Data Home Medications Medication Instructions Recorded Confirmed prenat.vits,leti,tve-pcpq-fezbl 1 tablet PO DAILY 01/05/21 07/19/21 subcutaneous insulin pump 04/18/21 07/19/21 insulin aspart U-100 100 unit/mL See Rx Instructions .Route .COMPLEX 06/24/21 07/19/21 subcutaneous solution (Novolog U-100 Insulin aspart) triamcinolone acetonide 0.1 % See Rx Instructions .Route .COMPLEX 07/19/21 07/19/21 topical ointment Allergies Allergy/AdvReac Type Severity Reaction Status Date / Time insulin lispro Allergy Intermediate Rash Verified 07/26/21 09:46 [From Humalog U-100 Insulin] Review of Systems Review of Systems: All systems reviewed & are unremarkable except as noted in HPI and below Constitutional: Constitutional: Denies chills, Denies fatigue and Denies fever(s) Gastrointestinal: Gastrointestinal: Denies abdominal pain, Denies nausea and Denies vomiting Genitourinary: Genitourinary: Denies abnormal vaginal bleeding, Denies hematuria, Denies nocturia and Reports dysuria Integumentary/Breasts: Skin/Breast: Reports erythema and Reports skin ulcer PMFSH Past Medical History Medical History Asthma Delivery by section for footling breech presentation Diabetes mellitus type 2 Ectopic x1 Missed x1 Surgical History Surgical History History of toe surgery for ingrown nail Family History Family History Mother Diabetes mellitus Social History Social History Smoking status: Never smoker Second hand tobacco smoke exposure: No Alcohol intake: never Substance use: never Spiritual care concerns: No Exam Narrative: GENERAL: Well-appearing, well-nourished, and in no acute distress. HEAD: Normocephalic, atraumatic. CHEST: Clear to auscultation. No respiratory distress. HEART: Regular rate and rhythm. Normal peripheral pulses. ABDOMEN: Soft, nontender, nondistended. EXTREMITIES: Normal range of motion. No edema. SKIN: Warm, dry. scar with small wound dehiscence on the left side. Surrounding induration noted. No cellulitis. There is yeast dermatitis noted with foul odor. NEURO: Alert and oriented x3. PSYCH: Normal mood and affect. Course Course Emergency Course: Discussed with Dr. Marlow. Will place on keflex and nystatin powder. Vital Signs Vital signs: Vital Signs Temperature 97.4 F L 08/04/21 19:30 Pulse Rate 81 08/04/21 19:30 Respiratory Rate 18 08/04/21 19:30 Blood Pressure 133/73 08/04/21 19:30 Pulse Oximetry 100 08/04/21 19:30 Oxygen Delivery Room Air 08/04/21 19:30 Temperature 97.4 F L 08/04/21 19:30 Pulse Rate 81 08/04/21 19:30 Respiratory Rate 18 08/04/21 19:30 Blood Pressure 133/73 08/04/21 19:30 Pulse Oximetry 100 08/04/21 19:30 Oxygen Delivery Room Air 08/04/21 19:30 MDM - Wound/Laceration Lab Data Labs: Lab Results 08/04/21 08/04/21 Range/Units 20:07 20:23 POC Capillary Glucose 85
[2021-08-04 20:52] LABS: Appearance Urine Slightly Cloudy (Clear); Color Urine Yellow (Yellow)
[2021-08-04 20:54] LABS: Add Urine Microscopic? YES; Bilirubin Urine Negative (Negative); Blood Urine 3+ (Negative); Glucose Urine UA Negative (Negative); Ketones Urine Negative (Negative); Leukocyte Esterase Ur 2+ LEU/UL (Negative); Nitrate Urine Negative (Negative); Protein Urine Negative (Negative); Specific Grav Ur 1.015 (1.001-1.035); Urobilinogen Urine 0.2 mg/dL (<2.0)
[2021-08-04 20:57] LABS: Bacteria Urine Trace /hpf; Mucus Urine Rare /lpf; RBC Urine 51-75 /hpf (0-2); Squamous Epithelial Cell Urine Moderate /hpf (Few); WBC Urine 16-20 /hpf
== END 2021-08-04 21:58 | disposition home or self-care (01) ==
PROVIDERS: Emergency Provider Emergency Medicine
DX: N39.0 Urinary tract infection, site not specified (principal); L30.9 Dermatitis, unspecified
CPT/HCPCS: 81001; 82948; 87086; 99283

== ENCOUNTER 2023-04-06 11:17 | Outpatient (CLI) | payer OTHER, SELFPAY ==
[2023-04-06 11:34] LABS: Basophils Percent Auto 0.5 % (0.2-1.2); Eosinophils Absolute Auto 0.3 K/mm3 (0-0.3); Eosinophils Percent Auto 3.3 % (0-4.4); Hematocrit 41.4 % (37.0-47.0); Hemoglobin 13.8 g/dL (12.0-15.0); Immature Granulocyte Absolute 0.02 K/mm3 (0.00-0.031); Immature Granulocyte Percent A 0.3 % (0-0.5); Lymphocytes Absolute Auto 2.72 K/mm3 (0.9-3.2); Lymphocytes Percent Auto 35.9 % (18.3-44.2); Mean Corpuscular HGB Conc 33.3 g/dl (32-36); Mean Corpuscular Hemoglobin 29.7 pg (26-34); Mean Corpuscular Volume 89.2 fl (80-100); Monocytes Absolute Auto 0.5 K/mm3 (0.1-0.6); Monocytes Percent Auto 6.7 % (2.6-8.5); Neutrophils Percent Auto 53.3 % (45.5-73.1); Platelet Count Result 312 k/mm3 (150-375); Red Blood Count 4.64 M/mm3 (4.2-5.4); Red Cell Distribution Width 12.3 % (11.5-14.5); White Blood Count 7.6 K/mm3 (4.5-10.0)
[2023-04-06 11:55] LABS: Alanine Aminotransferase 20 U/L (6-35); Albumin Level 4.2 g/dL (3.5-5.1); Alkaline Phosphatase 89 U/L (38-126); Anion Gap 7 mmol/L (8-16); Aspartate Amino Transferase 21 U/L (14-36); Bilirubin,Total 0.7 mg/dL (0.2-1.3); Blood Urea Nitrogen 8 mg/dL (7-17); Calcium 9.3 mg/dL (8.4-10.2); Carbon Dioxide 27 mmol/L (22-30); Chloride 104 mmol/L (98-107); Cholesterol 232 mg/dL (0-200); Estimated Glomerular Filt Rate > 60; Glucose 133 mg/dL (65-110); HDL Direct 32 mg/dL; Potassium 4.2 mmol/L (3.4-5.0); Sodium 138 mmol/L (137-145); Triglycerides 173 mg/dL (<150)
[2023-04-06 12:06] LABS: LDL Cholesterol Direct 160 mg/dL
[2023-04-06 16:31] LABS: Hemoglobin A1C 7.6 % (<5.7)
== END 2023-04-06 11:18 | disposition home or self-care (01) ==
LOC: ANHLAB 11:20
PROVIDERS: PCP Internal Medicine; Visit Provider Nurse Practitioner
DX: E11.9 Type 2 diabetes mellitus without complications (principal); Z13.29 Encounter for screening for other suspected endocrine disorder; Z13.220 Encounter for screening for lipoid disorders
CPT/HCPCS: 36415; 80053; 80061; 83036; 85025

== ENCOUNTER 2023-04-28 15:12 | Emergency (ER) | payer OTHER, SELFPAY ==
[2023-04-28 15:30] VITALS: BP 149/71; PULSE 117; RESP 18; TEMP 36.3; O2SAT 98
--- NOTE | 2023-04-28 15:35 | ED.URI ---
HPI - URI/Sore Throat General Chief Complaint: Upper Respiratory Infection Stated Complaint: Congestion/Cough/Sore Throat History of Present Illness HPI Narrative: Patient presents with nonproductive cough nasal congestion and body aches. Related Data Home Medications Medication Instructions Recorded Confirmed vit no.95-ferrous 1 tablet PO DAILY 04/28/23 04/28/23 fumarate 28 mg-folic acid 800 mcg tablet () Allergies Allergy/AdvReac Type Severity Reaction Status Date / Time insulin lispro Allergy Intermediate Rash Verified 04/28/23 15:45 [From Humalog U-100 Insulin] Review of Systems Review of Systems: CONSTITUTIONAL: Denies chills, or sweats. Reports fever and generalized body aches EYES: Denies visual changes, redness, or discharge. ENT: Denies otalgia. Reports nasal congestion runny nose and sore throat CARDIOVASCULAR: Denies chest pain, palpitations, or edema. RESPIRATORY: Denies dyspnea. Reports occasional cough GASTROINTESTINAL: Denies abdominal pain, nausea, vomiting, or diarrhea. GENITOURINARY: Denies dysuria or hematuria. SKIN: Denies rash or itching. MUSCULOSKELETAL: Denies back pain, joint pain, or myalgia. Reports generalized body aches NEUROLOGIC: Denies headache, numbness, or weakness. PSYCHIATRIC: Denies anxiety or depression. [facility] Past Medical History Medical History (Updated 04/28/23 @ 15:45 by KASANDRA Obrien) Asthma section wound complication Delivery by section for footling breech presentation Diabetes mellitus type 2 Ectopic x1 Hyperlipidemia Missed x1 Surgical History Surgical History Delivery by section 07/09/21 History of toe surgery for ingrown nail Family History Family History Mother Diabetes mellitus Social History Social History Smoking status: Never smoker Second hand tobacco smoke exposure: No Alcohol intake: never Substance use: never Lack of Transportation: No Lack of Food: Never True Current Housing: I Have Housing Concerned About Future Housing: No Difficulty Paying Gas/Electric Bills: YES Difficulty Paying for Meds: No Currently Unemployed: No Education: High School Diploma/GED Difficulty w/ Childcare or Family Care: No Spiritual care concerns: No Comments At time of signature, agree with nursing past medical, surgical, social and family history. There is no relevant family history pertinent to the presenting complaint Exam Narrative: The patient is a well-developed, well-nourished in no acute distress. SKIN: Skin is warm and dry without erythema, swelling or exudate. There is good turgor. No tenting. HEAD: Atraumatic. Normocephalic. No temporal or scalp tenderness. EYES: Moist and bright. Sclera and conjunctivae normal. No discharge. PERRLA. Extraocular motions intact. Gross visual acuity intact. EARS: Pinna is normal shape and contour. Clear external auditory canals. TM pearly capone with good cone of light, no erythema or suppuration. Bilateral cerumen noted no gross hearing deficit. NOSE: pink, moist mucosa with good air movement. Clear rhinorrhea without nasal flaring. Septum midline. Mouth: moist mucous membranes. THROAT; mild erythema noted to posterior oropharynx with moderate postnasal drainage. Without exudate or ulceration.. Uvula midline. Normal movement of soft palate. NECK: Supple and nontender with full range of motion without discomfort. No meningeal signs. LUNGS: Equal and bilateral breath sounds without wheezes, rales or rhonchi. CHEST: The chest wall is without retractions or use of accessory muscles. HEART: Has a regular rate and rhythm without murmur, gallops, click or rub. ABDOMEN: Soft, nontender with positive active bowel sounds. No rebound tenderness. EXTR
== END 2023-04-28 15:58 | disposition home or self-care (01) ==
PROVIDERS: Emergency Provider Nurse Practitioner Family; PCP Nurse Practitioner
DX: U07.1 COVID-19 (principal); E78.5 Hyperlipidemia, unspecified
CPT/HCPCS: 87426; 87804; 99213; G0463

== ENCOUNTER 2023-06-19 15:05 | Outpatient (CLI) | payer OTHER, SELFPAY ==
[2023-06-19 16:24] LABS: HIV 1/2 Ab P24 Ag Result Negative (Negative)
[2023-06-19 18:32] LABS: Hepatitis B Surface Antigen Negative (Negative)
[2023-06-19 18:50] LABS: Hepatitis C Virus Antibody Negative (Negative)
[2023-06-20 09:02] LABS: Rapid Plasma Reagin Non-Reactive (NonReactive)
== END 2023-06-19 15:06 | disposition home or self-care (01) ==
LOC: ANHLAB 15:06
PROVIDERS: PCP Nurse Practitioner; Visit Provider Nurse Practitioner Family
DX: Z11.3 Encounter for screening for infections with a predominantly sexual mode of transmission (principal)
CPT/HCPCS: 36415; 86592; 86703; 86803; 87340; G0432

== ENCOUNTER 2023-08-24 13:13 | Outpatient (RCR) | payer OTHER, SELFPAY ==
[2023-08-22 11:45] LABS: Beta HCG Quantitative 33.95 mIU/ML
[2023-08-24 14:33] LABS: Beta HCG Quantitative 58.26 mIU/ML
== END 2023-11-20 23:59 | disposition home or self-care (01) ==
LOC: ANHLAB 13:13
PROVIDERS: PCP Nurse Practitioner; Visit Provider Nurse Practitioner Women's Health
DX: O26.851 Spotting complicating pregnancy, first trimester (principal); O26.21 Pregnancy care for patient with recurrent pregnancy loss, first trimester; Z3A.00 Weeks of gestation of pregnancy not specified
CPT/HCPCS: 36415; 84702

== ENCOUNTER 2023-08-27 12:18 | Outpatient (CLI) | payer OTHER, SELFPAY ==
[2023-08-27 13:49] LABS: Beta HCG Quantitative 7.68 mIU/ML
== END 2023-08-27 12:19 | disposition home or self-care (01) ==
PROVIDERS: PCP Nurse Practitioner; Visit Provider Obstetrics & Gynecology Gynecology
DX: O26.21 Pregnancy care for patient with recurrent pregnancy loss, first trimester (principal); O26.851 Spotting complicating pregnancy, first trimester
CPT/HCPCS: 36415; 84702

== ENCOUNTER 2023-12-02 22:51 | Emergency (ER) | payer OTHER, SELFPAY ==
[2023-12-02 23:02] VITALS: BP 119/73; PULSE 93; RESP 14; TEMP 36.4; O2SAT 98
[2023-12-03 00:07] LABS: Influenza A QL RT-PCR Negative (Negative); Influenza B QL RT-PCR Negative (Negative); RSV RNA, RT-PCR Negative (Negative); SARS-CoV-2 RNA PCR Negative (Negative)
[2023-12-03 00:12] VITALS: BP 119/73; PULSE 93; RESP 14; TEMP 36.4; O2SAT 98
--- NOTE | 2023-12-03 00:57 | ED.FEMALEGU ---
HPI - Female Genitourinary General Chief complaint: TREE PULLER Stated complaint: 13 weeks vaginal bleeding, URI Time Seen by Provider: 12/03/23 00:20 History of Present Illness HPI Narrative: Patient is a 28-year-old female who presents to the emergency department this evening complaining of vaginal bleeding. Patient states that she is approximately 12 weeks with and follows up with maternal medicine at [facility] in [place]. Patient states that approximately 1 week ago she had vaginal spotting bleeding/spotting and went to the emergency department at [facility] and had an ultrasound performed which revealed subchorionic hemorrhages otherwise no acute process. Both babies had good heart rates. Patient then called [facility] OB earlier today and informed him that she is still having the vaginal bleeding which has resolved but then started again. Patient states that the bleeding is not heavy and is spotting. OB told her that she needs to go to the emergency department for further evaluation. Patient does not know what her Rh factor is but states that she was not given any medications. Patient denies any additional symptoms or concerns at this time. Related Data Allergies Allergy/AdvReac Type Severity Reaction Status Date / Time insulin lispro Allergy Intermediate Rash Verified 06/19/23 14:50 [From Humalog U-100 Insulin] Review of Systems Review of Systems: All systems are reviewed and are negative unless stated otherwise in the HPI. [facility] Past Medical History Medical History Asthma section wound complication Delivery by section for footling breech presentation Diabetes mellitus type 2 Ectopic x1 Hyperlipidemia Missed x1 Surgical History Surgical History Delivery by section 07/09/21 History of toe surgery for ingrown nail Family History Family History Mother Diabetes mellitus Social History Social History Smoking status: Never smoker Second hand tobacco smoke exposure: No Alcohol intake: never Substance use: never Lack of Transportation: No Lack of Food: Never True Current Housing: I Have Housing Concerned About Future Housing: No Difficulty Paying Gas/Electric Bills: YES Difficulty Paying for Meds: No Currently Unemployed: No Education: High School Diploma/GED Difficulty w/ Childcare or Family Care: No Spiritual care concerns: No Exam Narrative: General: Alert, awake, afebrile, in no acute distress. HEENT: PERRL, no rhinorrhea, no post nasal drip, oropharynx clear. Cardiovascular: Regular rate and rhythm, no murmurs, rubs or gallops, no peripheral edema. Respiratory: Clear to auscultation bilaterally, no tachypnea, no wheezing, no rhonchi, no rubs, no respiratory distress. Abdomen: Soft, nontender, nondistended, no rebound, no guarding, no peritoneal signs. Musculoskeletal: No joint swelling or deformity, normal muscle tone. Skin: No rashes or petechia, no signs of infection. Neurological: Alert and oriented to person, place, and time. Follows all commands. No focal deficits, speech is clear and fluent. Course Vital Signs Vital signs: Vital Signs Temperature 97.6 F 12/02/23 23:02 Pulse Rate 93 12/02/23 23:02 Respiratory Rate 14 12/02/23 23:02 Blood Pressure 119/73 12/02/23 23:02 Pulse Oximetry 98 12/02/23 23:02 Oxygen Delivery Room Air 12/02/23 23:02 Temperature 97.6 F 12/03/23 00:12 Pulse Rate 70 12/03/23 01:56 Respiratory Rate 16 12/03/23 01:56 Blood Pressure 112/78 12/03/23 01:56 Pulse Oximetry 97 12/03/23 01:56 Oxygen Delivery Room Air 12/03/23 00:12 MDM - Female Genitourinary MDM Narrative Medical decision
[2023-12-03 01:56] VITALS: BP 112/78; PULSE 70; RESP 16; O2SAT 97
== END 2023-12-03 01:57 | disposition home or self-care (01) ==
PROVIDERS: Emergency Provider Emergency Medicine; PCP Nurse Practitioner
DX: O20.0 Threatened abortion (principal); Z3A.12 12 weeks gestation of pregnancy
CPT/HCPCS: 87637; 99283

== ENCOUNTER 2024-09-23 13:46 | Outpatient (CLI) | payer OTHER, SELFPAY ==
--- OUTSIDE RECORDS SUMMARY | 2024-09-23 13:51 | XMS_ITS | Clinical Summary ---
Author Organization [employer] [facility] Address [address] [place] [address] Care Team Providers Care Linseed Oil Order Filler Name Role Phone Unavailable Primary Care Provider Unavailabl e Source Comments [facility],non-owned Affiliates and Associated Physician Practices is amultiple site organization consisting of ambulatory clinics and hospital sitesin [place], [place], [place] and [place]. This disclosure is being madepursuant to the Care Everywhere program and may not contain all information available regarding this patient. Last updated 17.[employer] Allergies Active Allergy Reactions Criticality Noted Date Comments Insulin Lispro Rash,Itching Medium 07/05/2021 Novolog is fine to use per patient, no reaction Medications * This document contains information received from the source organization and may not represent a complete record from that organization. * Be aware that medications may not be up to date on this document. Alwaysverify current medications with the patient. blood glucose (ONETOUCH VERIO) test strip Use 1 (one) strip 4 times daily 100 strip 5 1 Active Additional Information Patient not taking.Reported on 03/10/2024 Blood Glucose Monitoring Suppl (ONETOUCH VERIO FLEX SYSTEM) w/Device KIT Use 1 kit as directed 1 kit 1 1 Active Additional Information Patient not taking.Reported on 03/10/2024 Insulin Disposable Pump (OMNIPOD DASH 5 PACK PODS) MISC Use 1 packet as directed Apply 1 new pod every 3 days 2 Each 2 Active Continuous Blood Gluc Battery Plate Assembler (FREESTYLE LIDIA READER) REHANA Use 1 Each as directed 1 device 2 Active Vit-Fe Ihk-AQ-Znzmw (MOVEMENT EDUCATION SPECIALIST-PNV-DHA) 28-1-215.8 MG CAPS Take 1 tablet by mouth once daily 30 capsule 11 2 Active fluticasone propionate (FLONASE) 50 MCG/ACT nasal spray [place] 2 (two) sprays into each nostril once daily 1 Each 11 2 Active Additional Information Patient not taking.Reason: Patient adjusted, Reported on 04/14/2024 hydrocortisone, rectal, (ANUSOL-HC) 2.5 % creamIndications :anal irritation Insert into the rectum at bedtime Reasons: anal irritation 28 g 5 2 Active Additional Information Patient not taking.Reason: Patient adjusted, Reported on 04/14/2024 doxylamine (UNISOM) 25 MG tablet Take 1 (one) tablet by mouth nightly as needed for Insomnia 30 tablet 5 2 Active Additional Information Patient not taking.Reason: Patient adjusted, Reported on 04/14/2024 hydrOXYzine HCl (ATARAX) 25 MG tabletIndication s:Anxiety Take 1-2 tablets at night as needed for anxiety/insomni a Reasons: Feeling Anxious 60 tablet 2 2 Active Additional Information Patient not taking.Reason: Patient adjusted, Reported on 04/14/2024 triamcinolone acetonide (KENALOG) 0.1 % ointmentIndicati ons:Other specified dermatitis Apply to affected areas on both hands up to twice daily as needed. 30 days supply. 80 g 1 2 Active Additional Information Patient not taking.Reason: Patient adjusted, Reported on 04/14/2024 pyridoxine (Vitamin B-6) 25 MG tablet Take 2 (two) tablets by mouth 3 times daily 30 tablet 3 4 Active Additional Information Patient not taking.Reason: Patient adjusted, Reported on 04/14/2024 doxylamine (Unisom) 25 MG tablet Take 1 (one) tablet by mouth 3 times daily as needed (nausea) 30 tablet 3 4 Active Additional Information Patient not taking.Reason: Patient adjusted, Reported on 04/14/2024 famotidine (Pepcid) 20 MG tablet Take 1 (one) tablet by mouth every 12 hours for 30 days 60 tablet 4 Active acetone,urine, (Ketostix) strip Use to test for ketones in urine when blood glucose is > 200 mg/dl 25 strip 5 4 Active Additional Information Patient not taking.Reason: Patient adjusted, Reported on 01/14/2024 Insulin Pen Needle 32G X 4 MM MISCIndications: Type 2 diabetes mellitus affecting in first trimester, antepartum ([facility]) Use 1 Each once daily 100 Each 5 4 Active Additional Information Patient not taking.Reported on 03/10/2024 Insulin Disposable Pump (Omnipod 5 G6 Intro, Gen 5,) KITIndications:T ype 2 diabetes mellitus affecting in first trimester, antepartum ([facility]) Use 1 Each continuous 1 kit 4 Active ondansetron (Zofran) 8 MG tablet Take 1 (one) tablet by mouth every 6 hours as needed for Nausea/Vomiting 10 tablet 4 Active Additional Information Patient not taking.Reason: Patient adjusted, Reported on 04/14/2024 CALCIUM MAGNESIUM ZINC PO Take 1 tablet by mouth once daily Active Continuous Glucose Sensor (Dexcom G6 Sensor) MISC USE CONTINUOUS FOR 10 DAYS FOR 1 DOSE 4 Active OneTouch Delica Lancets 33G MISCIndications: Type 2 diabetes mellitus in , third trimester ([facility]) Use 1 Each as directed 100 Each 11 4 Active Additional Information Patient not taking.Reported on 03/10/2024 sertraline (Zoloft) 100 MG tablet Take 1.5 (one and one-half) tablets by mouth once daily 30 tablet 3 4 Active Additional Information Patient taking differently:150 mg Oral DAILY,150, Reason: Other, Reported on 03/10/2024 albuterol HFA (ProAir HFA) 108 (90 Base) MCG/ACT inhaler Inhale 2 (two) puffs by mouth every 4 hours as needed 8.5 g 4 Active Additional Information Patient not taking.Reason: Patient adjusted, Reported on 04/14/2024 Alcohol Swabs 70 % To use twice daily with insulin injections 100 Each 5 4 Active fluticasone-salm eterol (Advair/Wixela) 100-50 MCG/ACT inhaler Inhale 1 (one) puff by mouth 2 times daily 60 Each 4 Active Continuous Glucose Transmitter (Dexcom G6 Transmitter) MISCIndications: Type 2 diabetes mellitus affecting in first trimester, antepartum ([facility]) Use 1 Each continuous for 90 days 1 Each 5 4 Active fluconazole (Diflucan) 150 MG tablet Take 1 (one) tablet by mouth once daily 1 tablet 5 Active acetaminophen (Tylenol) 500 MG tablet Take 2 (two) tablets by mouth every 6 hours as needed for Fever or Pain 60 tablet 04/24/2024 10:03 AM FEEDER CATCHER 5 Active polyethylene glycol 3350 (MiraLax) 17 GM/SCOOP powder Mix one capful (17 grams) of powder with liquid and drink by mouth once daily 238 g 04/24/2024 10:03 AM FEEDER CATCHER 5 Active docusate sodium (Colace) 100 MG capsule Take 1 (one) capsule by mouth once daily 30 capsule 04/24/2024 10:03 AM FEEDER CATCHER 5 Active ibuprofen (Motrin) 600 MG tablet Take 1 (one) tablet by mouth every 6 hours as needed for Pain 30 tablet 04/24/2024 10:03 AM FEEDER CATCHER 5 Active naloxone HCl (Narcan) 4 MG/0.1ML nasal spray [place] 1 (one) spray into the nose as needed (May repeat every 2 min in alternating nostrils until emergency medical help arrives for overdose) 5 Active oxyCODONE, immediate release, (Roxicodone) 5 MG tabletIndication s: delivery delivered ([facility]) Take 1 (one) tablet by mouth every 6 hours as needed for Pain 12 tablet 04/24/2024 10:03 AM FEEDER CATCHER 5 Active metFORMIN (Glucophage) 500 MG tablet Take 1 (one) tablet by mouth 2 times daily with morning and evening meal 60 tablet 04/24/2024 10:03 AM FEEDER CATCHER 5 Active norethindrone 0.35 MG tabletIndication s:Contraceptive Therapy Take 1 (one) tablet by mouth once daily 28 tablet 1 04/24/2024 10:03 AM FEEDER CATCHER 5 Active lurasidone (Latuda) 20 MG tablet Take 1 (one) tablet by mouth at bedtime 90 tablet 1 04/24/2024 3:03 PM FEEDER CATCHER Active Active Problems Patient Care Coordination No te Formatting of this note migh t be different from the original. [employer] form completed. Diapers given. 03/10/2024, 04/14/2024 Problem Noted Date Diagnosed Date Abdominal cramping affecting Encounter for ultrasound to assess growth 03/10/2024 Vaginal spotting 12/31/2023 Dichorionic diamniotic twin gestation 11/12/2023 Previous delivery, antepartum condition or complication 11/12/2023 Mild intermittent asthma 11/12/2023 Anxiety and depression 11/12/2023 Heartburn during 11/12/2023 Nausea/vomiting in 11/12/2023 Maternal morbid obesity, antepartum 11/12/2023 Overview (12/31/2023): BMI 40.2 pre- Supervision of high risk , antepartum 0 10/28/2023 Overview (11/04/2023): - Primary OB: PAUL from Dr. Adamson - PNL: Rh+/RI/HIV NR/SYPH NR/HBV-/HCV-/GBS/Varicella Immune - GCCT/trich: neg (10/30/23) - Last Pap: NIELM and neg HRHPV (10/30/23) - Genetic screening: - Vaccinations: - Tdap: assess after 27w - Influenza: - COVID: - RSV: may offer if between 32-36 weeks from Nov - Mar - Ultrasounds: - Dated by 5w6d US, di di twins confirmed on 10/14/23 - Anatomy US, completed on - Growth: - UCx: neg - UDS: pos THC (10/30/23) - 3T labs: - Tdap: - GBS: - Feeding: - Contraception: - ANFS: Obesity, Class III, BMI 40-49.9 (morbid obesity) 04/05/2021 Type 2 diabetes mellitus in 02/14/2021 Overview (04/19/2021): (01/05/21): HgA1c: 5.9% (04/18/21): TSH: 2.240, HgA1c: 5.2%, CMP: creatinine: 0.40, AST: 18. ALT: 12, PCR: 0.07 Resolved Problems Problem Noted Date Diagnosed Date Resolved Date 23 weeks gestation of 02/14/2021 04/12/2021 Overview (03/08/2021): Lab summary: (01/05/21): O+, Ab: Negative, Rub: Immune, Rpr-NR, Hbsag-NR, HIV-NR, HepC-NR H/h/p: 13.7 / 39.3 / 361 CF screen: Negative QUAD (02/25/21): Negative Encounters Date Type Department Care Team Description 07/16/2024 Travel 07/14/2024 Telephone [facility] - ELEVATOR INSPECTOR [address] [place] [id number] Tracy James APRN-SHORTHAND REPORTER Follow-up 07/14/2024 Patient Outreach [facility]/ EVALUATION UNIT [address] [place], [place] [id number] Amara Galvan RN Care Management (Called pt to follow up on resources sent for SDOH needs. Pt is 12 weeks . Pt states has stable housing. Rent and utilities are up to date. She has SNAP and WIC and denies food insecurity. States her mood is not real stable, feels she had a manic episode and says her mood can be extremes. Is taking medication and was told to follow up with [facility] but has not been seen yet. Informed pt I will send them a message to contact her to schedule an appointment. Babies are doing well, one of them) 07/08/2024 Telephone [facility]/ EVALUATION UNIT [address] [place], [place] [id number] Quyen Ornelas MD Appointment from Last 3 Months Immunizations Immunization Administration Dates Next Due COVID MODERNA 12+ yr 50mcg/0.5mL 02/05/2024 DTP 11/23/1996 DTP HIB, HISTORIC VACCINE 02/25/1996,1995, 1995 DTaP VACCINE IM (6wk-6yrs) 05/28/2000 HEP A PEDS 2 DOSE 09/15/2007,03/10/2007 HEP B VACCINE, PED/ADOL 02/25/1996,1995, HIB-HAEMOPHILUS INFLUENZAE B CONJUGATE VACCINE 11/23/1996 Human Papilloma Virus Theron valent Vaccine 09/15/2007,05/12/2007,03/10/2007 INFLUENZA VACCINE 05/15/2021, 8,03/10/2007,11/23 INFLUENZA VACCINE, TRIV. (FL UZONE; FLULAVAL; FLUARIX; AFLURIA TRIVALENT; 6MO+), 0.5 ML (IIV3) 12/04/2023 CATA VACCINE QUAD LAIV4 PF NASAL 02/10/2020 MENINGOCOCCAL ACWY (MCV4P) VAC IM 09/15/2007 MMR 04/22/2024(Deferred: See Comments - rubella immune),05/28/2000,08/20/1996 POLIO IPV 05/28/2000 POLIO OPV 12/22/1996, 7,02/25/1996,12/22,1995 TDAP (7yrs+) 04/22/2024(Deferred: - recieved 03/10/24),03/10/2024,05/26/2021,2006 VARICELLA 03/10/2007,10/20/1996 Social History Tobacco Use Types Packs/Day Years Used Date Smoking Tobacco: Never Passive Smoke Exposure: Never Smokeless Tobacco: Never Tobacco Cessation:Counseling Given: Yes Alcohol Use Standard Drinks/Week Comments Not Currently 0 (1 standard drink = 0.6 oz pur e alcohol) Overall Financial Resource Strain (CARDIA) Answe r Date Recorded How hard is it for you to pa y for the very basics like food, housing, medical care, and heating? Somewhat hard 04/21/2024 [facility] - Occupational Stress Questionnaire Answer Date Recorded Do you feel stress - tense, restless, nervous, or anxious, or unable to sleep at night because your mind is troubled all the time - these days? To some extent 04/21/2024 Hunger Vital Sign Answer Date Recorded Within the past 12 months, y ou worried that your food would run out before you got the money to buy more. Never true 04/21/19 25 Within the past 12 months, t he food you bought just didn't last and you didn't have money to get more. Never true 04/21/2024 PRAPARE - Transportation Answer Date Re corded In the past 12 months, has l ack of transportation kept you from medical appointments or from getting medications? Yes 04/11 In the past 12 months, has l ack of transportation kept you from meetings, work, or from getting things needed for daily living? No 04/21/2024 Housing Stability Vital Sign Answer Dmitriy e Recorded In the last 12 months, was t here a time when you were not able to pay the mortgage or rent on time? Yes 11/27/2023 In the last 12 months, how many places have you lived? 2 11/27/2023 In the last 12 months, was t here a time when you did not have a steady place to sleep or slept in a fci (including now)? No 11/27/2023 Beaver Depression Scale Answer Date Recorded Beaver Depression Scale Total 20 10/30/2023 The thought of harming myself has occurred to me . Never 10/30/2023 Housing Stability Vital Sign Answer Dmitriy e Recorded In the last 12 months, was t here a time when you were not able to pay the mortgage or rent on time? Yes 04/21/2024 In the past 12 months, how m any times have you moved where you were living? 2 04/21/2024 At any time in the past 12 m [facility], were you homeless or living in a fci (including now)? No 04/21/2024 Comments No Sex and Gender Information Value Date Recorded Sex Assigned at Not on file Legal Sex Female 9:38 AM FEEDER CATCHER Gender Identity Not on file Sexual Orientation Not on file Occupation Industry Job Start Date Job End Date white Not on file Not on file Not on file Last Filed Vital Signs Vital Sign Reading Time Taken Comments Blood Pressure 105/73 04/24/2024 9:15 AM FEEDER CATCHER Pulse 78 04/24/2024 9:15 AM FEEDER CATCHER Temperature 36.7 C (98.1 F) 04/24/2024 9:15 AM FEEDER CATCHER Respiratory Rate 20 04/24/2024 9:15 AM FEEDER CATCHER Oxygen Saturation 100% 04/24/2024 9:15 AM FEEDER CATCHER Inhaled Oxygen Concentration - - Weight 109.3 kg (241 lb) 04/21/2024 5:48 AM FEEDER CATCHER Height 157.5 cm (5' 2) 04/21/2024 5:48 AM FEEDER CATCHER Body Mass Index 44.08 04/21/2024 5:48 AM FEEDER CATCHER Plan of Treatment Health Maintenance Due Date Last Done Comments PNEUMOCOCCAL VACCINE (1 of 2 - PCV) 08/21/2014 DEPRESSION SCREENING 03/11/2024 10/30/2023 INFLUENZA VACCINE (#1) 2024 , 05/15/2021, 02/10/2020, Additional history exists PAP SMEAR 10/29/2026 10/30/2023, 04/11/2020 DTAP/TDAP/TD VACCINES (9 - Td or Tdap) 03/10/2034 03/10/2024, 05/26/2021, 03/10/2007, Additional history exists ZOSTER VACCINE (1 of 2) 08/21/2045 HEPATITIS B VACCINE Completed 02/25/1996, 1995, 1995 HIB VACCINE Completed 11/23/1996, 02/08, 1995, Additional history exists HPV VACCINE Completed 09/15/2007, 05/2007, 03/10/2007 MENINGOCOCCAL GROUPS A/C/Y/W VACCINE Aged Out 09/15/2007 No longer eligible based on patient's age to complete this topic HEPATITIS C SCREENING Completed 10/30/2023, 022 COVID-19 VACCINE Completed 02/05/2024 HIV SCREENING Completed 03/10/2024, 10/30/2023 MENINGOCOCCAL (Group B) VACCINE SHARED DECISION-MAKING Aged Out No longer eligible based on patient's age to complete this topic Procedures Procedure Name Priority Date/Time Associated Diagnosis Comments HIV-1 HIV-2 ANTIBODY + HIV P24 AG PANEL Routine 03/10/2024 3:24 PM FEEDER CATCHER with type 2 diabetes mellitus in second trimester PAP IG LB+HPV APTIMA Routine 10/30/2023 3:26 PM CDT Supervision of high risk , antepartum HEPATITIS C ANTIBODY Routine 10/30/2023 3:25 PM CDT Supervision of high risk , antepartum from Last 3 Months or Most Recently Relevant to Health Maintenance Results * HIV-1 HIV-2 ANTIBODY + HIV P24 AG PANEL (03/10/2024 3:24 PM FEEDER CATCHER) HIV1/2 Ab + P24 Ag Non Reactive Non Reactive 03/10/2024 4:45 PM FEEDER CATCHER [facility] Blood BLOOD SPECIMEN / Unknown Venipuncture / Unknown 03/10/2024 3:24 PM FEEDER CATCHER 03/10/2024 3:57 PM FEEDER CATCHER Narrative [facility] - 03/10/2024 4:45 PM FEEDER CATCHER No Laboratory evidence of HIV infection. Gini Leo MD LAB - CHEMISTRY ORDERAB LES Final Result [facility] [address] [place] [address] * PAP IG LB+HPV APTIMA (10/30/2023 3:26 PM CDT) Diagnosis Comment 11/04/2023 3:08 PM CDT [facility] ([facility]) Comment:NEGATIVE FOR INTRAEP ITHELIAL LESION OR MALIGNANCY. Specimen Adequacy Comment 024 3:08 PM CDT [facility] ([facility]) Comment: Satisfactory for evaluation. Endocervical and/or squamous metaplastic cells (endocervical component) are present. Performed by Comment 11/04/2023 3:08 PM CDT [facility] ([facility]) Comment:Duran Merino , Electrician'S Assistant (ASCP) Comment . 11/04/2023 3:08 PM CDT [facility] ([facility]) Note Comment 11/04/2023 3:08 PM CDT [facility] ([facility]) Comment: The Pap smear is a screening test designed to aid in the detection of premalignant and malignant conditions of the uterine cervix. It is not a diagnostic procedure and should not be used as the sole means of detecting cervical cancer. Both false-positive and false-negative reports do occur. [facility] CPT Code Automation Comment 11/04/2023 3:08 PM CDT [facility] ([facility]) Comment: This liquid based ThinPrep(R) pap test was screened with the use of an image guided system. Human papillomavirus Aptima Negative Negative 11/04/2023 3:08 PM CDT [facility] ([facility]) Comment: This nucleic acid amplification test detects fourteen high-risk HPV types (16,18,31,33,35,39,45,51,52,56,58,59,66,68) without differentiation. Pathology/Cytolo gy PART OF UTERINE CERVIX / Unknown Collection / Unknown 10/30/2023 3:26 PM CDT 10/30/2023 3:54 PM CDT Narrative [facility] ([facility]) - 11/04/2023 3:08 PM CDT Performed at: 01 - [address] [id number] Underwriting Clerk: Lauren Koenig MD, Phone: [phone] Performed at: 02 - [address] [id number] Underwriting Clerk: Lauren Koenig MD, Phone: [phone] Specimen Comment: No. of containers..01 ThinPrep Vial William Saunders MD LAB - PATHOLOGY/CYTOLO GY ORDERABLES Final Result [facility] ([facility]) [address] [place] [id number] * HEPATITIS C ANTIBODY (10/30/2023 3:25 PM CDT) HCV Antibody Screen Non Reactive Non Reactive 10/30/2023 5:39 PM CDT [facility] Blood BLOOD SPECIMEN / Unknown Venipuncture / Unknown 10/30/2023 3:25 PM CDT 10/30/2023 4:53 PM CDT Narrative [facility] - 10/30/2023 5:39 PM CDT Non Reactive - Antibodies to Hepatitis C virus (HCV) were not detected, result does not exclude early acute HCV infection. William Saunders MD LAB - CHEMISTRY LILA PUGA Final Result [facility] [address] [place] [address] from Last 3 Months or Most Recently Relevant to Health Maintenance Insurance [facility] Advance Directives * Full Code (Latest Code Status on File) Date Activated Date Inactivated Comments 04/21/2024 8:01 AM 04/24/2024 6:02 PM
--- OUTSIDE RECORDS SUMMARY | 2024-09-23 13:51 | XMS_ITS | Referral Summary ---
Author Organization [facility] Address [address] [place] [address] Care Team Providers Care Copyright Manager Name Role Phone Arely Adamson MD Unavailable [phone] Kay Cardona NP Primary Care Provider [phone] Allergies Active Allergy Reactions Criticality Noted Date Comments Insulin Lispro Protamin-Lispro Itching Low 11/25 Medications metFORMIN (GLUCOPHAGE) 500 mg tablet Take 500 mg by mouth 2 (two) times a day 04/05/2020 Active ibuprofen (ADVIL,MOTRIN) 600 mg tablet Take 1 tablet (600 mg total) by mouth every 6 (six) hours as needed for pain (pain) 40 tablet 1 04/11/2020 Active albuterol (PROAIR RESPICLICK) 90 mcg/actuation inhaler Inhale 2 puffs every 6 (six) hours as needed for wheezing Active traMADoL (ULTRAM) 50 mg tablet Take 1 tablet (50 mg total) by mouth every 6 (six) hours as needed for pain 12 tablet 08/27/2020 Active Active Problems Problem Noted Date Diagnosed Date Visit for screening 07/11/2021 History of ectopic 07/31/2020 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 Never 03/02/2021 Average Number of Drinks Not on file 021 Q3: How often do you have si x or more drinks on one occasion? Never 03/02/2021 Personal Safety Answer Date Recorded Have you ever been in or are you currently in a harmful physical or emotional relationship or is someone making you feel afraid or unsafe? Denies 11/26/2023 Comments Unknown Sex and Gender Information Value Date Recorded Sex Assigned at Not on file Legal Sex Female 1:44 AM CHIEF DESIGN DRAFTER Gender Identity Not on file Sexual Orientation Not on file Last Filed Vital Signs Vital Sign Reading Time Taken Comments Blood Pressure 111/70 11/26/2023 12:40 PM CDT Pulse 100 11/26/2023 12:40 PM CDT Temperature 36.6 C (97.8 F) 11/26/2023 12:40 PM CDT Respiratory Rate 18 11/26/2023 12:40 PM CDT Oxygen Saturation 100% 11/26/2023 12:40 PM CDT Inhaled Oxygen Concentration - - Weight 102.1 kg (225 lb) 11/26/2023 12:40 PM CDT Height 157.5 cm (5' 2) 11/26/2023 12:40 PM CDT Body Mass Index 41.15 11/26/2023 12:40 PM CDT Plan of Treatment Not on file Procedures Procedure Name Priority Date/Time Associated Diagnosis Comments EGFR STAT 04/12/2020 7:42 AM CHIEF DESIGN DRAFTER Ectopic without intrauterine , unspecified location PAP WITH REFLEX TO HIGH RISK HPV Routine 04/11/2020 5:05 PM CHIEF DESIGN DRAFTER Ectopic without intrauterine , unspecified location HEMOGLOBIN A1C Routine 04/06/2020 7:14 AM CHIEF DESIGN DRAFTER Pre-existing diabetes mellitus affecting in first trimester, antepartum from Last 3 Months or Most Recently Relevant to Health Maintenance Results * eGFR (04/12/2020 7:42 AM CHIEF DESIGN DRAFTER) eGFR 137 mL/min/1.7 3 m2 [facility] ([place]) Comment: Interpretive Data Reference Interval Normal >/= 90 mL/min/1.73m2 Mildly decreased* 60 - 89 mL/min/1.73m2 Mildly to moderately decreased 45 - 59 mL/min/1.73m2 Moderately to severely decreased 30 - 44 mL/min/1.73m2 Severely decreased 15 - 29 mL/min/1.73m2 Kidney Failure < 15 mL/min/1.73m2 *Relative to young adult level Estimated glomerular filtration rate is determined by the CKD-EPI equation recommended by the National Kidney Foundation (KDIGO 2012 Clinical Practice Guideline for the Evaluation and Management of Chronic Kidney Disease. Kidney Intnl Suppl Mar 2012;3:1). The CKD-EPI equation should not be used for patients with unstable renal function and has not been validated in children and those over 70. Current interpretive data was last reviewed 2020 Blood specimen (specimen) 04/12/2020 7:42 AM CHIEF DESIGN DRAFTER 04/12/2020 10:02 AM CHIEF DESIGN DRAFTER us Abelino Mayer MD LAB BLOOD ORDERABLES Final Result [facility] ([place]) 1 [facility] [place] [address] * Pap with reflex to High Risk HPV (04/11/2020 5:05 PM CHIEF DESIGN DRAFTER) Clinical indication Comment [facility] - 01 Comment:NEGATIVE FOR INTRAEP ITHELIAL LESION OR MALIGNANCY. Specimen adequacy: Comment [facility] - 01 Comment: Satisfactory for evaluation. Endocervical and/or squamous metaplastic cells (endocervical component) are present. Clinician provided ICD10 Comment [facility] - 01 Comment:O00.90 Performed by Comment [facility] - 01 Comment:Man Ugalde totechnologist (ASCP) . . [facility] - 01 Note: Comment [facility] - 01 Comment: The Pap smear is a screening test designed to aid in the detection of premalignant and malignant conditions of the uterine cervix. It is not a diagnostic procedure and should not be used as the sole means of detecting cervical cancer. Both false-positive and false-negative reports do occur. Test methodology Comment [facility] - 01 Comment: This liquid based ThinPrep(R) pap test was screened with the use of an image guided system. . Comment [facility] - 01 Comment: The HPV DNA reflex criteria were not met with this specimen result therefore, no HPV testing was performed. Swab 04/11/2020 5:05 PM CHIEF DESIGN DRAFTER 04/11/2020 Narrative [facility] - 04/13/2020 12:10 PM CHIEF DESIGN DRAFTER Performed at: - [address] [id number] Community Living Coach: Lauren Koenig MD, Phone: [phone] Specimen Comment: [id number] Specimen Comment: No. of containers..01 ThinPrep Vial Abelino Mayer MD LAB CYTOLOGY ORDERABLES Fi nal Result Performing Organization Address City/[facility]/ZIP Co de Phone Number [facility] - * (ABNORMAL) Hemoglobin A1c (04/06/2020 7:14 AM CHIEF DESIGN DRAFTER) Hgb A1C 6.4(H) 4.0 - 5.6 % [facility] ([place]) Estimated Average Glucose 137 mg/dL [facility] ([place]) Comment: The ADA recommends reporting an estimated Average Glucose (eAG) with all Hemoglobin A1c results using the equation derived from a study of 507 normal and diabetic adults. Minority populations were underrepresented and children were not included. (Diabetes Care 31:0473-8930, 2008). The eAG is not equivalent to a fasting glucose. Blood specimen (specimen) 04/06/2020 7:14 AM CHIEF DESIGN DRAFTER 04/06/2020 10:06 AM CHIEF DESIGN DRAFTER Abelino Mayer MD LAB BLOOD ORDERABLES Final Result [facility] ([place]) 1 [facility] Department [place] [address] from Last 3 Months or Most Recently Relevant to Health Maintenance Insurance [facility] Care Teams Copyright Manager Relationship Specialty Start Date End Date Kay Cardona NP [address] [facility] [place], [place] [id number] PCP - General Nurse Practitioner 11/26/23 Arely Adamson MD [address] [id number] Referring Physician Gynecology 10/11/23
--- OUTSIDE RECORDS SUMMARY | 2024-09-23 13:51 | XMS_ITS | Clinical Summary ---
Author Organization [facility] Address [address] [place] [address] Care Team Providers Care Propulsion Engineer Name Role Phone Arely Adamson MD Unavailable [phone] Kay Cardona NP Primary Care Provider [phone] Allergies Active Allergy Reactions Criticality Noted Date [...] infection 11/16/2014 Overview (06/15/2016): Upper respiratory infection Medical History Medical History Date Comments Arthritis Diabetes (HCC) Asthma Family History Medical History Relation Name Comments Diabetes Mother Breast cancer Neg Hx Colon cancer Neg Hx Ovarian cancer Neg Hx Uterine cancer Neg Hx Relation Name Status Comments Maternal Grandfather Alive Maternal Grandmother Alive Mother Alive Social History Tobacco Use Types Packs/Day Years [...] on file Legal Sex Female 1:44 AM SHOE FITTER Gender Identity Not on file Sexual Orientation Not on file Obstetrics History Para Term AB IAB SAB Ectopic Multiple Livin g Live Births 4 2 1 1 Date Outcome GA Total Labor Labor/2nd/3rd Weight Sex Type Anes PTL Deja A1 A5 Name Clin 03/15/19 21 Ectopic Comments:Methotrexate given 08/26/19 21 SAB SAB Last Filed Vital Signs Vital Sign Reading [...] 11/26/2023 12:40 PM CDT Plan of Treatment Health Maintenance Due Date Last Done Comments Albumin Creatinine Ratio, Urine 1995 Depression Screening 1995 Hepatitis C Screening 1995 Dilated Eye Exam 1995 Foot Exam 1995 Lipid Panel 1995 Regular Well Visit/Exam 18-64 08/21/2013 Pneumococcal vaccine <65 (1 of 2 - PCV) 08/21/2014 Cervical Cancer Screening 04/11/2021 04/11/2020 eGFR 04/12/2021 04/12/2020 Covid-19 Vaccine (2 - 2023-2 5 season) 2023 02/17/2021 Hemoglobin A1C 05/01/2024 10/30/2023, 04/06/2020 Influenza Vaccine (Season Ended) 2024 05/15/2021, 02/10/2020, 09/15/2007, Additional history exists DTaP/Tdap/Td Vaccine (8 - Td or Tdap) 05/27/2031 05/26/2021, 03/10/2007, 05/28/2000, Additional history exists Hepatitis B Screening Completed 02/25/1996 , 1995, 1995 Varicella Vaccines Completed 03/10/2007, 10/20/1996 HPV Vaccines Completed 09/15/2007, 05/2007, 03/10/2007 Procedures Procedure Name Priority Date/Time Associated Diagnosis Comments EGFR STAT 04/12/2020 7:42 AM SHOE FITTER Ectopic without intrauterine , unspecified location PAP WITH REFLEX TO HIGH RISK HPV Routine 04/11/2020 5:05 PM SHOE FITTER Ectopic without intrauterine , unspecified location HEMOGLOBIN A1C Routine 04/06/2020 7:14 AM SHOE FITTER Pre-existing diabetes mellitus affecting in first trimester, antepartum from Last 3 Months or Most Recently Relevant to Health Maintenance Results * eGFR (04/12/2020 7:42 AM SHOE FITTER) eGFR 137 mL/min/1.7 3 m2 [facility] ([place]) Comment: Interpretive Data Reference Interval Normal >/= [...] 2020 Blood specimen (specimen) 04/12/2020 7:42 AM SHOE FITTER 04/12/2020 10:02 AM SHOE FITTER us Abelino Mayer MD LAB BLOOD ORDERABLES Final Result [facility] ([place]) 1 [facility] Department [place] [address] * Pap with reflex to High Risk HPV (04/11/2020 5:05 PM SHOE FITTER) Clinical indication Comment [facility] - 01 Comment:NEGATIVE FOR INTRAEP ITHELIAL LESION OR MALIGNANCY. Specimen adequacy: Comment [facility] - 01 Comment: Satisfactory for evaluation. Endocervical and/or squamous metaplastic cells (endocervical component) are present. Clinician provided ICD10 Comment [facility] - 01 Comment:O00.90 Performed by Comment [facility] - 01 Comment:Tori Hoover, Man totechnologist (ASCP) . . [facility] - 01 [...] testing was performed. Swab 04/11/2020 5:05 PM SHOE FITTER 04/11/2020 Narrative [facility] - 04/13/2020 12:10 PM SHOE FITTER Performed at: - [address] [place] [id number] Endoscope Technician: Lauren Koenig MD, Phone: [phone] Specimen Comment: [id number] Specimen Comment: No. of containers..01 ThinPrep Vial Abelino Mayer MD LAB CYTOLOGY ORDERABLES Fi nal Result [facility] - 01 * (ABNORMAL) Hemoglobin A1c (04/06/2020 7:14 AM SHOE FITTER) Hgb A1C 6.4(H) 4.0 - 5.6 % [facility] ([place]) Estimated Average Glucose 137 mg/dL [facility] ([place]) Comment: The ADA recommends reporting an estimated Average Glucose (eAG) with all Hemoglobin A1c results using the equation derived from a study of 507 normal and diabetic adults. Minority populations were underrepresented and children were not included. (Diabetes Care 31:6611-4331, 2008). The eAG is not equivalent to a fasting glucose. Blood specimen (specimen) 04/06/2020 7:14 AM SHOE FITTER 04/06/2020 10:06 AM SHOE FITTER Abelino Mayer MD LAB BLOOD ORDERABLES Final Result Performing Organization Address City/[facility]/ZIP Co de Phone Number [facility] ([place]) 1 [facility] Department [place] [address] from Last 3 Months or Most Recently Relevant to Health Maintenance [place] [address] [facility] Care Teams Propulsion Engineer Relationship Specialty Start Date End Date Kay Cardona NP [address] [facility] [place] [address] PCP - General Nurse Practitioner 11/26/23 Arely Adamson MD [facility] [address] [address] [address] Referring Physician Gynecology 10/11/23
[2024-09-23 18:39] LABS: Hematocrit 40.7 % (37.0-47.0); Hemoglobin 13.3 g/dL (12.0-15.0); Immature Granulocyte Percent A 0.3 % (0-0.5); Lymphocytes Absolute Auto 3.11 K/mm3 (0.9-3.2); Mean Corpuscular HGB Conc 32.7 g/dl (32-36); Mean Corpuscular Hemoglobin 29.5 pg (26-34); Mean Corpuscular Volume 90.2 fl (80-100); Nucleated Red Blood Cells Absolute Auto 0.000 K/mm3 (0.0-0.012); Nucleated Red Blood Cells Perc 0.0 % (0.0-0.2); Platelet Count Result 306 k/mm3 (150-375); Red Blood Count 4.51 M/mm3 (4.2-5.4); White Blood Count 9.3 K/mm3 (4.5-10.0)
[2024-09-23 18:44] LABS: Alanine Aminotransferase 20 U/L (6-35); Albumin Level 4.3 g/dL (3.5-5.1); Alkaline Phosphatase 72 U/L (38-126); Anion Gap 7 mmol/L (4-12); Aspartate Amino Transferase 43 U/L (14-36); Bilirubin,Total 0.3 mg/dL (0.2-1.3); Blood Urea Nitrogen 10 mg/dL (7-17); Calcium 9.5 mg/dL (8.4-10.2); Carbon Dioxide 26 mmol/L (22-30); Chloride 105 mmol/L (98-107); Estimated Glomerular Filt Rate > 60; Glucose 94 mg/dL (65-110); Potassium 4.1 mmol/L (3.4-5.0); Sodium 138 mmol/L (137-145); Total Protein 7.6 g/dL (6.3-8.2)
[2024-09-23 20:07] LABS: Hemoglobin A1C 6.3 % (<5.7)
== END 2024-09-23 13:47 | disposition home or self-care (01) ==
LOC: ANHGOSHLAB 13:47
PROVIDERS: PCP Nurse Practitioner; Visit Provider Nurse Practitioner
DX: E11.9 Type 2 diabetes mellitus without complications (principal)
CPT/HCPCS: 36415; 80053; 83036; 85025

== ENCOUNTER 2025-01-18 15:41 | Outpatient (CLI) | payer OTHER, SELFPAY ==
--- NOTE | ~2025-01-18 | US_ITS ---
US OB <=14 wk fetus w TV INDICATION:ectopic COMPARISON: None. TECHNIQUE: Transabdominal and transvaginal ultrasound of the pelvis was performed. FINDINGS: The uterus measures 10.3 x 5.4 x 7.9 cm. There is a live single intrauterine with estimated gestational age of 6 weeks 1 day. heart tones of 101 bpm were detected. The right ovary measures 3.2 x 1.7 x 1.2 cm. The left ovary measures 3.6 x 2.6 x 2.8 cm. ) Luteal cyst within the left ovary measures 1.9 x 1.8 x 2 cm No adnexal masses are seen. No pelvic fluid or mass is seen. IMPRESSION: There is a single live intrauterine with estimated gestational age of 6 weeks 1 day and heart tones measuring 102 bpm. The uterus is otherwise unremarkable in appearance. The ovaries are normal in appearance. No solid or cystic adnexal lesions are noted. Reviewed, dictated and finalized at location S. ATORIUM OPERATOR IMPRESSION: There is a single live intrauterine with estimated gestational age of 6 weeks 1 day and heart tones measuring 102 bpm. The uterus is otherwise unremarkable in appearance. The ovaries are normal in a ppearance. No solid or cystic adnexal lesions are noted.
--- OUTSIDE RECORDS SUMMARY | 2025-01-18 15:45 | XMS_ITS | Clinical Summary ---
Author Organization [facility] Address [address] [place] [address] Care Team Providers Care Optometry Doctor Name Role Phone Arely Adamson MD Unavailable [phone] Kay Cardona NP Primary Care Provider [phone] Allergies Active Allergy Reactions Criticality Noted Date [...] History Medical History Date Comments Arthritis Diabetes Asthma Family History Medical History Relation Name [...] on file Legal Sex Female 1:44 AM TROLLEY WORKER Gender Identity Not on file Sexual Orientation [...] Cancer Screening 04/11/2021 04/11/2020 eGFR 04/12/2021 04/12/2020 Hemoglobin A1C 10/12/2024 04/14/2024, 12/10, 10/30/2023, Additional history exists Covid-19 Vaccine (2 - 2024-2 6 season) 2024 02/17/2021 Influenza Vaccine (#1) 2024 , 05/15/2021, 02/10/2020, Additional history exists DTaP/Tdap/Td Vaccine (9 - Td or Tdap) 03/10/2034 03/10/2024, 05/26/2021, 03/10/2007, Additional history exists Hepatitis B Screening Completed 02/25/1996 , 1995, 1995 Varicella Vaccines Completed 03/10/2007, 10/20/1996 HPV Vaccines Completed 09/15/2007, 05/2007, 03/10/2007 Procedures Procedure Name Priority Date/Time Associated Diagnosis Comments EGFR STAT 04/12/2020 7:42 AM TROLLEY WORKER Ectopic without intrauterine , unspecified location PAP WITH REFLEX TO HIGH RISK HPV Routine 04/11/2020 5:05 PM TROLLEY WORKER Ectopic without intrauterine , unspecified location HEMOGLOBIN A1C Routine 04/06/2020 7:14 AM TROLLEY WORKER Pre-existing diabetes mellitus affecting in first trimester, antepartum from Last 3 Months or Most Recently Relevant to Health Maintenance Results * eGFR (04/12/2020 7:42 AM TROLLEY WORKER) eGFR 137 mL/min/1.7 3 m2 [facility] [...] 2020 Blood specimen (specimen) 04/12/2020 7:42 AM TROLLEY WORKER 04/12/2020 10:02 AM TROLLEY WORKER us Abelino Mayer MD LAB BLOOD ORDERABLES Final Result [facility] ([place]) 1 [facility] Department [place] [address] * Pap with reflex to High Risk HPV (04/11/2020 5:05 PM TROLLEY WORKER) Clinical indication Comment [facility] - 01 Comment:NEGATIVE [...] testing was performed. Swab 04/11/2020 5:05 PM TROLLEY WORKER 04/11/2020 Narrative [facility] - 04/13/2020 12:10 PM TROLLEY WORKER Performed at: - [address] [place] [id number] Glass Sander: Lauren Koenig MD, Phone: [phone] Specimen Comment: [id number] Specimen Comment: No. of containers..01 ThinPrep Vial Abelino Mayer MD LAB CYTOLOGY ORDERABLES Fi nal Result [facility] - 01 * (ABNORMAL) Hemoglobin A1c (04/06/2020 7:14 AM TROLLEY WORKER) Hgb A1C 6.4(H) 4.0 - 5.6 % [facility] ([place]) Estimated Average Glucose 137 mg/dL [facility] ([place]) Comment: The ADA recommends reporting an estimated Average Glucose (eAG) with all Hemoglobin A1c results using the equation derived from a study of 507 normal and diabetic adults. Minority populations were underrepresented and children were not included. (Diabetes Care 31:4113-6033, 2008). The eAG is not equivalent to a fasting glucose. Blood specimen (specimen) 04/06/2020 7:14 AM TROLLEY WORKER 04/06/2020 10:06 AM TROLLEY WORKER Abelino Mayer MD LAB BLOOD ORDERABLES Final Result Performing Organization Address City/[facility]/ZIP Co de Phone Number [facility] ([place]) 1 [facility] Department [place] [address] from Last 3 Months or Most Recently Relevant to Health Maintenance Insurance [place] [address] [facility] Care Teams Optometry Doctor Relationship Specialty Start Date End Date Kay Cardona NP [address] [facility] [place] [address] PCP - General Nurse Practitioner 11/26/23 Arely Adamson MD 2022 [facility] [address] [address] [address] Referring Physician Gynecology 10/11/23
--- OUTSIDE RECORDS SUMMARY | 2025-01-18 15:45 | XMS_ITS | Clinical Summary ---
Author Organization [facility] Address [address] [place] [address] Phone Care Team Providers Care Associate Professor Of Anthropology Name Role Phone Provider, Unknown Primary Care Provider Unavaila ble Allergies Active Allergy Reactions Criticality Noted Date Comments Insulin Lispro Prot & Lispro Rash 022 Medications ISIBLOOM 0.15-30 MG-MCG Tablet TK 1 T PO D 5 9 Active Progesterone Micronized 200 MG Capsule Take 200 mg by mouth daily. Hazardous: Medication requires special safe handling and disposal. Active ALPRAZolam (XANAX) 1 MG Tablet Take 1 mg by mouth 3 times daily as needed. Active Sertraline HCl (ZOLOFT PO) Take by mouth. Act kathie Icejgmsg-Foa-Ie -FA (PRE- PO) Take by mouth. Activ e triamcinolone (KENALOG) 0.025 % Cream Apply 2 times daily. Application Site: hands (Description and Location) Active HYDROcodone-gerardo taminophen (NORCO) 5-325 MG Tablet Take 1 Tablet by mouth every 4 hours as needed. Active Insulin Disposable Pump (Omnipod DASH Pods, Gen 4,) Misc Use with omnipod dash insulin pump - change as directed. 1 Each 2 Active Insulin Aspart (NovoLOG) 100 UNIT/ML Solution Inject one vial into insulin pump as directed. 10 mL 2 Active Additional Information Patient not taking.Reported on 11/15/2021 Continuous Blood Gluc Sensor (Dexcom G6 Sensor) MiscIndications :Type 2 diabetes mellitus without complication, without long-term current use of insulin,Class 3 severe obesity due to excess calories with serious comorbidity and body mass index (BMI) of 40.0 to 44.9 in adult Change sensor every 10 days. 3 Each 3 2 Active fluticasone (FLONASE) 50 MCG/ACT SuspensionIndic ations:Acute maxillary sinusitis, recurrence not specified 1-2 Sprays by Nasal route daily. Use in each nostril as directed. 16 g 2 Active methylPREDNISol one (Medrol) 4 MG Tablet Therapy PackIndications :Acute maxillary sinusitis, recurrence not specified Use as per instructions on package. 21 Tablet 2 Active Additional Information Patient not taking.Reported on 11/11/2024 Continuous Blood Gluc Transmit (Dexcom G6 Transmitter) Misc 1 Each by Does not apply route every 90 days. Change transmitter every 90 days. 1 Each 3 3 Active Continuous Blood Gluc Sensor (Dexcom G6 Sensor) Misc 1 Each by Does not apply route every 10 days. Test blood glucose 3 Each 3 3 Active Continuous Blood Gluc Boxcar Weigher (Dexcom G6 Boxcar Weigher) Device 1 Device by Does not apply route 4 times daily. 1 Each 3 Active Additional Information Patient not taking.Reported on 11/11/2024 aspirin 81 MG Chewable Tablet Take 81 mg by mouth. 2 Active docusate sodium (COLACE) 100 MG Capsule Take 100 mg by mouth. 2 Active Doxylamine Succinate, Sleep, (UNISOM) 25 MG Tablet Take 25 mg by mouth. 2 Active famotidine (PEPCID) 20 MG Tablet Take 20 mg by mouth. 2 Active Glucagon (Baqsimi One Pack) 3 MG/DOSE Powder 3 mg by Nasal route. 1 Active hydrocortisone 0.5 % Cream Apply. 2 Active hydrOXYzine (ATARAX) 25 MG Tablet Take 1-2 tablets at night as needed for anxiety/insomnia Reasons: Feeling Anxious 2 Active insulin detemir (LEVEMIR) 100 UNIT/ML Solution Pen-injector 14-50 Units by Subcutaneous route. 2 Active Insulin Pen Needle 32G X 4 MM Misc 1 Each by Does not apply route. 2 Active OneTouch Delica Lancets 33G Misc 1 Each by Does not apply route. 1 Active Vit-Fe Nxe-GW-Ixzov (PRESSURE SEALER AND TESTER-PNV-DHA) 28-1-215.8 MG Capsule Take 1 Tablet by mouth daily. 2 Active polyethylene glycol (GLYCOLAX) 17 GM/SCOOP Powder Take 17 g by mouth. 2 Active mupirocin (BACTROBAN) 2 % Ointment Apply. 2 Active metFORMIN (GLUCOPHAGE-XR) 500 MG TABLET SR 24 HR Take 1,000 mg by mouth. 1 Active lurasidone (LATUDA) 20 MG Tablet Take 20 mg by mouth nightly. Active albuterol (ProAir HFA) 108 (90 Base) MCG/ACT Aerosol Solution take 2 Puffs by inhalation every 4 hours as needed for Wheezing or Cough. 8 g 5 Active Active Problems Problem Noted Date Diagnosed Date Type 2 diabetes mellitus wit hout complication, without long-term current use of insulin 10/05/2021 Class 3 severe obesity due t o excess calories with serious comorbidity and body mass index (BMI) of 40.0 to 44.9 in adult 10/05/2021 Encounters Date Type Department Care Team Description 11/11/2024 12:40 PM CDT Urgent Care Visit [facility] [address] [place] [address] Violetta Baires, MARYELLEN, WEDDING PLANNER Viral upper respiratory tract infection (Primary Dx); Acute cough; Sore throat; Nausea; Nonintractable headache, unspecified chronicity pattern, unspecified headache type; Wheezing; Moderate asthma with exacerbation, unspecified whether persistent Discharge Disposition: Discharged to home or Selfcare 11/11/2024 Travel from Last 3 Months Immunizations Immunization Administration Dates Next Due DTAP VACCINE 05/28/2000 DTP Vaccine 11/23/1996 DTP-Hib 02/25/1996,1995,1995 Hepatitis A Vaccine, Pediatric/adolescent, 2 Dose Schedule 09/15/2007,03/10/2007 Hepatitis A, Pediatric, Unsp ecified Formulation 09/15/2007,03/10/2007 Hepatitis B Vaccine, Pediatric/adolescent 02/25/1996,1995,1995 Hib (HbOC) 11/23/1996 Hib Vaccine,unspecified Formulation 11/23/1996 Human Papillomavirus Vaccine (HPV), quadrivalent 09/15/2007,05/12/2007,03/10/2007 Inactivated Polio Vaccine 05/28/2000 Influenza Vaccine Quadrivalent Nasal 02/10/2020 Influenza Vaccine,unspecifie d Formulation 05/15/2021 MMR Vaccine 05/28/2000,08/20/1996 Meningococcal C Conjugate Vaccine 09/15/2007 Meningococcal Vaccine 09/15/2007 OPV 12/22/1996, 7,02/25/1996,12/22,1995 TDAP Vaccine 05/26/2021,03/10/2007 Varicella Vaccine Live 03/10/2007,10/20/1996 Family History Medical History Relation Name Comments Diabetes Mother Relation Name Status Comments Mother Social History Tobacco Use Types Packs/Day Years Used Date Smoking Tobacco: Never Smokeless Tobacco: Never Tobacco Cessation:Counseling Given: No Alcohol Use Standard Drinks/Week Comments No 0 (1 standard drink = 0.6 oz pur e alcohol) socially PHQ-2 Answer Date Recorded Total Score - Questions 1-9 10 03/12 Education Answer Date Recorded What is the highest level of school you have completed or the highest degree you have received? 12th grade 02/19/2020 Sexually Active Control Partners Comments Never Male Comments Unknown Sex and Gender Information Value Date Recorded Sex Assigned at Not on file Legal Sex Female 12:20 AM CDT Gender Identity Not on file Sexual Orientation Not on file Last Filed Vital Signs Vital Sign Reading Time Taken Comments Blood Pressure 146/78 11/11/2024 12:52 PM CDT Pulse 104 11/11/2024 12:52 PM CDT Temperature 36 C (96.8 F) 11/11/2024 12:52 PM CDT Respiratory Rate 18 11/11/2024 12:5 2 PM CDT Oxygen Saturation 97% 11/11/2024 1:34 PM CDT Inhaled Oxygen Concentration - - Weight 113.5 kg (250 lb 3.2 oz) 05/15/2022 3:02 PM ORTHODONTIST VICE PRESIDENT Height 157.5 cm (5' 2) 10/30/2021 3:09 PM CDT Body Mass Index 45.76 10/30/2021 3:09 PM CDT Plan of Treatment Health Maintenance Due Date Last Done Comments Diabetes: Eye Exam 1995 Diabetes: Foot Exam 1995 Pneumococcal Immunization Combined (1 of 2 - PCV) 08/21/2014 Diabetes: Nephropathy Screening 09/07/2022 09/07/2021 Diabetes: Hemoglobin A1c 10/12/2024 025, 05/15/2022, 10/05/2021, Additional history exists Influenza Immunization (#1) 11/09/202411/10, 05/15/2021, 02/10/2020 SARS-COV-2 Immunization ( season) 2024 02/05/2024, 05/05/2021, 02/17/2021 Pap Smear 10/29/2026 10/30/2023, 04/11/2020 DTaP/Tdap/Td Immunization (9 - Td or Tdap) 03/10/2034 03/10/2024, 05/26/2021, 03/10/2007, Additional history exists Respiratory Syncytial Virus (RSV) Immunization (Adult) (1 - 1-dose 75+ series) 08/21/2070 Hepatitis B Immunization Completed 996, 1995, 1995 Human Papillomavirus (HPV) Immunization Completed 09/15/2007, 05/12/2007, 03/10/2007 Meningococcal Immunization (ACWY) Aged Out 09/15/2007 No longer eligible based on patient's age to complete this topic Hepatitis C Virus (HCV) Screening Completed 10/30/2023 Rotavirus Immunization Aged Out No lo nger eligible based on patient's age to complete this topic Procedures Procedure Name Priority Date/Time Associated Diagnosis Comments POC INFLUENZA A AND B BY MOLECULAR Routine 11/11/2024 1:01 PM CDT Acute cough Nausea Nonintractable headache, unspecified chronicity pattern, unspecified headache type POC SARS-COV-2 BY MOLECULAR Routine 11/11/2024 1:01 PM CDT Acute cough Sore throat Nausea Nonintractable headache, unspecified chronicity pattern, unspecified headache type POC GROUP A STREP BY MOLECULAR Routine 11/11/2024 12:56 PM CDT Sore throat Nausea Nonintractable headache, unspecified chronicity pattern, unspecified headache type POCT GLYCOSYLATED HEMOGLOBIN Routine 05/15/2022 3:05 PM ORTHODONTIST VICE PRESIDENT Type 2 diabetes mellitus without complication, without long-term current use of insulin (HCC) CMP (COMPREHENSIVE METABOLIC PANEL) STAT 09/07/2021 11:35 PM CDT PATHOLOGY CYTOLOGY INCIDENT RESPONSE ENGINEER 04/11/2020 12:00 AM ORTHODONTIST VICE PRESIDENT from Last 3 Months or Most Recently Relevant to Health Maintenance Results * POC SARS-COV-2 BY MOLECULAR (11/11/2024 1:01 PM CDT) SARSCOV2 Negative Negative, INVALID PROCEDURE CONTROL Valid 11/11/2024 1:01 PM CDT us Violetta Baires APRN, JOSE POINT OF CARE TEST ING (MANUAL) Final Result * POC INFLUENZA A AND B BY MOLECULAR (11/11/2024 1:01 PM CDT) INFLUENZA A RNA Negative Negative, Invalid INFLUENZA B RNA Negative Negative, Invalid PROCEDURE CONTROL Valid 11/11/2024 1:01 PM CDT us Violetta Baires APRN, WEDDING PLANNER POINT OF CARE TEST ING (MANUAL) Final Result * POC GROUP A STREP BY MOLECULAR (11/11/2024 12:56 PM CDT) STREP A DNA Negative Negative, Invalid PROCEDURE CONTROL Valid 11/11/2024 12:5 6 PM CDT us Violetta Baires APRN, JOSE POINT OF CARE TEST ING (MANUAL) Final Result * (ABNORMAL) POCT GLYCOSYLATED HEMOGLOBIN (05/15/2022 3:05 PM ORTHODONTIST VICE PRESIDENT) HGB-A1C 6.9(A) 4 - 6 Blood 05/15/2022 3:05 PM ORTHODONTIST VICE PRESIDENT Michel Gallardo MD POINT OF CARE TESTING (MANUAL) F inal Result * (ABNORMAL) CMP (Comprehensive Metabolic Panel) (09/07/2021 11:35 PM CDT) Pathologist [facility] SODIUM 137 136 - 144 mmol/L 09/08/2021 12:06 AM CDT [facility] POTASSIUM 3.8 3.5 - 5.1 mmol/L 09/08/2021 12:06 AM CDT [facility] CHLORIDE 101 100 - 110 mmol/L 09/08/2021 12:06 AM T [facility] CO2, VENOUS 22 22 - 32 mmol/L 09/08/2021 12:06 AM T [facility] ANION GAP 17.8 8.0 - 20.0 mmol/L 09/08/2021 12:06 AM T [facility] GLUCOSE 150(H) 70 - 99 mg/dL 09/08/2021 12:06 AM T [facility] BUN 12 6 - 20 mg/dL 09/08/2021 12:06 AM T [facility] CREATININE, BLOOD 0.61 0.60 - 1.10 mg/dL 09/08/2021 12:06 AM T [facility] BUN/CREATININE RATIO 20 12 - 20 ratio 09/08/2021 12:06 AM T [facility] TOTAL PROTEIN 7.4 6.0 - 8.3 g/dL 09/08/2021 12:06 AM T [facility] ALBUMIN 4.4 3.5 - 5.2 g/dL 09/08/2021 12:06 AM [facility] Comment: The colormetric methods used for the determination of Albumin may lead to falsely elevated test results in patients suffering from renal failure or insufficiency due to interference with other proteins. A/G RATIO 1.5 1.0 - 2.0 09/08/2021 12:06 AM CDT [facility] CALCIUM 9.1 8.9 - 10.3 mg/dL 09/08/2021 12:06 AM CDT [facility] T BILI 0.3 <=1.2 mg/dL 09/08/2021 12:06 AM CDT [facility] SGOT (AST) 15 <=32 U/L 09/08/2021 12:06 AM CDT [facility] SGPT (ALT) 18 <=41 U/L 09/08/2021 12:06 AM CDT [facility] ALKALINE PHOSPHATASE 104 35 - 105 U/L 09/08/2021 12:06 AM CDT [facility] GFR, EST. NONAFRICAN >60 >=60 09/08/2021 12:06 AM CDT [facility] GFR, EST. >60 >=60 022 12:06 AM CDT [facility] Comment: Creatinine Clearance is the preferred criteria for selecting drug dose adjustments in renally impaired patients. The GFR is provided as additional pertinent clinical information. GFR is reported in mL/min/1.73 sq m. Blood Venipuncture / Unknown 09/07/2021 11:35 PM CDT 09/07/2021 11:35 PM CDT us Stu Schaeffer MD CHEMISTRY ORDERABLES Final Resul t [facility] [address] [place] [address] * PATHOLOGY CYTOLOGY INCIDENT RESPONSE ENGINEER (04/11/2020 12:00 AM ORTHODONTIST VICE PRESIDENT) 04/11/2020 us Not On File Provider PATHOLOGY/CYTOLOGY ORDERABL ES Final Result [facility] from Last 3 Months or Most Recently Relevant to Health Maintenance Insurance [place] * Guarantor: [facility] Account Type Relation to Patient Date of Phone Billing Address Institutional Other [address] [place] [address] Care Teams Associate Professor Of Anthropology Relationship Specialty Start Date End Date Provider, Unknown UNKNOWN PCP - General 11/11/24
--- OUTSIDE RECORDS SUMMARY | 2025-01-18 15:45 | XMS_ITS | Clinical Summary ---
Author Organization [email or web address] [facility] Address [address] [place] [address] Care Team Providers Care Refractory Grinder Operator Name Role Phone Unavailable Primary Care Provider Unavailabl e Source Comments [facility]non-owned Affiliates and Associated Physician Practices is amultiple site organization consisting of ambulatory clinics and hospital sitesin [place], [place], [place] and [place]. This disclosure is being madepursuant to the Care Everywhere program and may not contain all information available regarding this patient. Last updated [email or web address] Allergies Active Allergy Reactions Criticality Noted Date [...] 2 Each 2 Active Continuous Blood Gluc Agricultural Loan Officer (FREESTYLE LIDIA READER) REHANA Use 1 Each as directed 1 device 2 Active Vit-Fe Mhs-MM-Ipdpv (EMPLOYMENT AGENCY MANAGER-PNV-DHA) 28-1-215.8 MG CAPS Take 1 tablet by mouth once daily 30 capsule 11 2 Active fluticasone propionate (FLONASE) 50 MCG/ACT nasal spray Charlotte 2 (two) sprays into each nostril once [...] diabetes mellitus affecting in first trimester, antepartum ([facility]) Use 1 Each once daily 100 Each 5 4 Active Additional Information Patient not taking.Reported on 03/10/2024 Insulin Disposable Pump (Omnipod 5 G6 Intro, Gen 5,) KITIndications:T ype 2 diabetes mellitus affecting in first trimester, antepartum ([facility]) Use 1 Each continuous 1 kit 4 [...] 2 diabetes mellitus in , third trimester ([facility]) Use 1 Each as directed 100 Each [...] diabetes mellitus affecting in first trimester, antepartum ([facility]) Use 1 Each continuous for 90 days 1 Each 5 4 Active fluconazole (Diflucan) 150 MG tablet Take 1 (one) tablet by mouth once daily 1 tablet 5 Active acetaminophen (Tylenol) 500 MG tablet Take 2 (two) tablets by mouth every 6 hours as needed for Fever or Pain 60 tablet 04/24/2024 10:03 AM DESIGN MAINTENANCE ENGINEER 5 Active polyethylene glycol 3350 (MiraLax) 17 GM/SCOOP powder Mix one capful (17 grams) of powder with liquid and drink by mouth once daily 238 g 04/24/2024 10:03 AM DESIGN MAINTENANCE ENGINEER 5 Active docusate sodium (Colace) 100 MG capsule Take 1 (one) capsule by mouth once daily 30 capsule 04/24/2024 10:03 AM DESIGN MAINTENANCE ENGINEER 5 Active ibuprofen (Motrin) 600 MG tablet Take 1 (one) tablet by mouth every 6 hours as needed for Pain 30 tablet 04/24/2024 10:03 AM DESIGN MAINTENANCE ENGINEER 5 Active naloxone HCl (Narcan) 4 MG/0.1ML nasal spray Charlotte 1 (one) spray into the nose as needed (May repeat every 2 min in alternating nostrils until emergency medical help arrives for overdose) 5 Active oxyCODONE, immediate release, (Roxicodone) 5 MG tabletIndication s: delivery delivered ([facility]) Take 1 (one) tablet by mouth every 6 hours as needed for Pain 12 tablet 04/24/2024 10:03 AM DESIGN MAINTENANCE ENGINEER 5 Active metFORMIN (Glucophage) 500 MG tablet Take 1 (one) tablet by mouth 2 times daily with morning and evening meal 60 tablet 04/24/2024 10:03 AM DESIGN MAINTENANCE ENGINEER 5 Active norethindrone 0.35 MG tabletIndication s:Contraceptive Therapy Take 1 (one) tablet by mouth once daily 28 tablet 1 04/24/2024 10:03 AM DESIGN MAINTENANCE ENGINEER 5 Active lurasidone (Latuda) 20 MG tablet Take 1 (one) tablet by mouth at bedtime 90 tablet 1 04/24/2024 3:03 PM DESIGN MAINTENANCE ENGINEER Active Active Problems Patient Care Coordination No te Formatting of this note migh t be different from the original. [employer] form completed. Diapers given. 03/10/2024, [...] 361 CF screen: Negative QUAD (02/25/21): Negative Immunizations Immunization Administration Dates Next Due COVID [...] medical care, and heating? Somewhat hard 04/21/2024 [facility] [place] of Occupat ional Health - Occupational Stress [...] place to sleep or slept in a [place] facility (including now)? No 11/27/2023 [place] Depression Scale Answer Date Recorded [place] Depression Scale Total 20 10/30/2023 The thought [...] any time in the past 12 m [facility], were you homeless or living in a [place] health [place] facility (including now)? No 04/21/2024 Comments No Sex and Gender Information Value Date Recorded Sex Assigned at Not on file Legal Sex Female 9:38 AM DESIGN MAINTENANCE ENGINEER Gender Identity Not on file Sexual Orientation Not on file Occupation Industry Job Start Date Job End Date white Not on file Not on file Not on file Last Filed Vital Signs Vital Sign Reading Time Taken Comments Blood Pressure 105/73 04/24/2024 9:15 AM DESIGN MAINTENANCE ENGINEER Pulse 78 04/24/2024 9:15 AM DESIGN MAINTENANCE ENGINEER Temperature 36.7 C (98.1 F) 04/24/2024 9:15 AM DESIGN MAINTENANCE ENGINEER Respiratory Rate 20 04/24/2024 9:15 AM DESIGN MAINTENANCE ENGINEER Oxygen Saturation 100% 04/24/2024 9:15 AM DESIGN MAINTENANCE ENGINEER Inhaled Oxygen Concentration - - Weight 109.3 kg (241 lb) 04/21/2024 5:48 AM DESIGN MAINTENANCE ENGINEER Height 157.5 cm (5' 2) 04/21/2024 5:48 AM DESIGN MAINTENANCE ENGINEER Body Mass Index 44.08 04/21/2024 5:48 AM DESIGN MAINTENANCE ENGINEER Plan of Treatment Health Maintenance Due Date Last Done Comments PNEUMOCOCCAL VACCINE (1 of 2 - PCV) 08/21/2014 DEPRESSION SCREENING 03/11/2024 INFLUENZA VACCINE (#1) 2024 , 05/15/2021, 02/10/2020, [...] complete this topic HEPATITIS C SCREENING Completed 10/30/2023 COVID-19 VACCINE Completed 02/05/2024 HIV SCREENING Completed 03/10/2024, 10/30/2023 MENINGOCOCCAL (Group B) VACCINE SHARED DECISION-MAKING Aged Out No longer eligible based on patient's age to complete this topic Procedures Procedure Name Priority Date/Time Associated Diagnosis Comments HIV-1 HIV-2 ANTIBODY + HIV P24 AG PANEL Routine 03/10/2024 3:24 PM DESIGN MAINTENANCE ENGINEER with type 2 diabetes mellitus in second trimester PAP IG LB+HPV APTIMA Routine 10/30/2023 3:26 PM CDT Supervision of high risk , antepartum HEPATITIS C ANTIBODY Routine 10/30/2023 3:25 PM CDT Supervision of high risk , antepartum from Last 3 Months or Most Recently Relevant to Health Maintenance Results * HIV-1 HIV-2 ANTIBODY + HIV P24 AG PANEL (03/10/2024 3:24 PM DESIGN MAINTENANCE ENGINEER) HIV1/2 Ab + P24 Ag Non Reactive Non Reactive 03/10/2024 4:45 PM DESIGN MAINTENANCE ENGINEER [facility] Blood BLOOD SPECIMEN / Unknown Venipuncture / Unknown 03/10/2024 3:24 PM DESIGN MAINTENANCE ENGINEER 03/10/2024 3:57 PM DESIGN MAINTENANCE ENGINEER Narrative [facility] - 03/10/2024 4:45 PM DESIGN MAINTENANCE ENGINEER No Laboratory evidence of HIV infection. us Gini Leo MD LAB - CHEMISTRY ORDERAB LES Final Result [facility] [address] [place] [address] * PAP IG LB+HPV APTIMA (10/30/2023 3:26 PM CDT) Diagnosis Comment 11/04/2023 3:08 PM CDT [facility] ([facility]) Comment:NEGATIVE FOR INTRAEP ITHELIAL LESION OR MALIGNANCY. Specimen Adequacy Comment 024 3:08 PM CDT [facility] ([facility]) Comment: Satisfactory for evaluation. Endocervical and/or squamous metaplastic cells (endocervical component) are present. Performed by Comment 11/04/2023 3:08 PM CDT [facility] ([facility]) Comment:Duran Merino , Tree And Shrub Worker (ASCP) Comment . 11/04/2023 3:08 PM CDT [facility] ([facility]) Note Comment 11/04/2023 3:08 PM CDT [facility] ([facility]) Comment: The Pap smear is a screening test designed to aid in the detection of premalignant and malignant conditions of the uterine cervix. It is not a diagnostic procedure and should not be used as the sole means of detecting cervical cancer. Both false-positive and false-negative reports do occur. IGLBP CPT Code Automation Comment 11/04/2023 3:08 PM CDT [facility] ([facility]) Comment: This liquid based ThinPrep(R) pap test was screened with the use of an image guided system. Human papillomavirus Aptima Negative Negative 11/04/2023 3:08 PM CDT [facility] ([facility]) Comment: This nucleic acid amplification test detects fourteen high-risk HPV types (16,18,31,33,35,39,45,51,52,56,58,59,66,68) without differentiation. Pathology/Cytolo gy PART OF UTERINE CERVIX / Unknown Collection / Unknown 10/30/2023 3:26 PM CDT 10/30/2023 3:54 PM CDT Narrative [facility] ([facility]) - 11/04/2023 3:08 PM CDT Performed at: 01 - [address] [id number] [place] [employer] Specialist: Lauren Koenig MD, Phone: [phone] Performed at: 02 - [address] [id number] [employer] Specialist: Lauren Koenig MD, Phone: [phone] Specimen Comment: No. of containers..01 ThinPrep Vial William Saunders MD LAB - PATHOLOGY/CYTOLO GY ORDERABLES Final Result [facility] ([facility]) [address] [place] [address] * HEPATITIS C ANTIBODY (10/30/2023 3:25 PM CDT) HCV Antibody Screen Non Reactive Non Reactive 10/30/2023 5:39 PM CDT [facility] Blood BLOOD SPECIMEN / Unknown Venipuncture / Unknown 10/30/2023 3:25 PM CDT 10/30/2023 4:53 PM CDT Narrative [facility] - 10/30/2023 5:39 PM CDT Non Reactive - Antibodies to Hepatitis C virus (HCV) were not detected, result does not exclude early acute HCV infection. William Saunders MD LAB - CHEMISTRY ORDERA BLES Final Result [facility] [address] [place] [address] from Last 3 Months or Most Recently Relevant to Health Maintenance [place] [address] [address] [facility] [place] [id number] [facility] Advance Directives * Full Code (Latest Code Status on File) Date Activated Date Inactivated Comments 04/21/2024 8:01 AM 04/24/2024 6:02 PM
--- OUTSIDE RECORDS SUMMARY | 2025-01-18 15:45 | XMS_ITS | Encounter Summary ---
Author Organization [facility] Address [address] [place] [address] Phone Care Team Providers Care Soap Tender Name Role Phone Tatiana Tillman APRN, INSURANCE MARKETING REP Primary Care Provider Michel Gallardo MD Unavailable Provider, Unknown Primary Care Provider Unavaila ble Encounter Details Date Type Department Care Team (Late st Contact Info) Description 04/27/2021 Lab Requisition [facility] [address] [place] [address] Malathi Nelson APRN, INSURANCE MARKETING REP [address] [place] [address] Encounter for pre-employment examination Social History Tobacco Use Types Packs/Day Years Used Date Smoking Tobacco: Never Smokeless Tobacco: Never Alcohol Use Standard Drinks/Week Comments No 0 (1 standard drink = 0.6 oz pur e alcohol) socially PHQ-2 Answer Date Recorded Total Score - Questions 1-9 10 03/12 Education Answer Date Recorded What is the highest level of school you have completed or the highest degree you have received? 12th grade 02/19/2020 Sexually Active Control Partners Comments Never Male Comments Yes Sex and Gender Information Value Date Recorded Sex Assigned at Not on file Legal Sex Female 12:20 AM CDT Gender Identity Not on file Sexual Orientation Not on file COVID-19 Exposure Response Date Recorded In the last month, have you been in contact with someone who was confirmed or suspected to have Coronavirus / COVID-19? No / Unsure 04/26/2021 2:51 PM SPRING ENCASER documented as of this encounter Plan of Treatment Not on file documented as of this encounter Procedures Procedure Name Priority Date/Time Associated Diagnosis Comments QUANTIFERON-TB GOLD PLUS Routine 04/26/2021 3:00 PM SPRING ENCASER Encounter for pre-employment examination MMRV PANEL Routine 04/26/2021 3:00 PM SPRING ENCASER Encounter for pre-employment examination MUMPS IGG Routine 04/26/2021 3:00 PM SPRING ENCASER Encounter for pre-employment examination HERPES ZOSTER (VARICELLA) IGG Routine 04/26/2021 3:00 PM SPRING ENCASER Encounter for pre-employment examination RUBEOLA (MEASLES) IGG Routine 04/26/2021 3:00 PM SPRING ENCASER Encounter for pre-employment examination RUBELLA IMMUNITY IGG Routine 04/26/2021 3:00 PM SPRING ENCASER Encounter for pre-employment examination HEPATITIS B SURFACE ANTIBODY (HBSAB) Routine 04/26/2021 3:00 PM SPRING ENCASER Encounter for pre-employment examination documented in this encounter Results * HERPES ZOSTER (VARICELLA) IGG (04/26/2021 3:00 PM SPRING ENCASER) VARICELLA ZOSTER IGG 4.0 >=1.1 AI 04/28/2021 5:18 PM SPRING ENCASER [facility] Blood No Phlebotomy Charged / Unknown 04/26/2021 3:00 PM SPRING ENCASER 04/27/2021 11:31 AM SPRING ENCASER Narrative [facility] - 04/28/2021 5:18 PM SPRING ENCASER <= 0.8 Negative. No detectable VZV IgG antibody. 0.9 - 1.0 Equivocal >=1.1 Positive Antibody testing was performed by multiplex flow immunoassay on the Guroo platform. us Malathi Maricarmen Beharron JOINT CREASER, INSURANCE MARKETING REP IMMUNOLOGY ORDERABL ES Final Result [facility] [address] [place] [address], [place] * RUBEOLA (MEASLES) IGG (04/26/2021 3:00 PM SPRING ENCASER) MEASLES AB IGG 1.9 >=1.1 AI 04/28/2021 5:18 PM SPRING ENCASER [facility] Blood No Phlebotomy Charged / Unknown 04/26/2021 3:00 PM SPRING ENCASER 04/27/2021 11:31 AM SPRING ENCASER Narrative [facility] - 04/28/2021 5:18 PM SPRING ENCASER <= 0.8 Negative. No detectable Measles IgG antibody. 0.9 - 1.0 Equivocal >=1.1 Positive Antibody testing was performed by multiplex flow immunoassay on the PlaceIQlex platform. us Malathi Maricarmen Behrendiya JOINT CREASER, INSURANCE MARKETING REP IMMUNOLOGY ORDERABL ES Final Result Performing Organization Address City/[facility]/ZIP Co de Phone Number [facility] [address] [place] [address], [place] * RUBELLA IMMUNITY IGG (04/26/2021 3:00 PM SPRING ENCASER) RUBELLA IMMUNITY Immune Immune, Invalid 04/28/2021 5:18 PM SPRING ENCASER [facility] Blood No Phlebotomy Charged / Unknown 04/26/2021 3:00 PM SPRING ENCASER 04/27/2021 11:31 AM SPRING ENCASER Narrative [facility] - 04/28/2021 5:18 PM SPRING ENCASER Antibody testing was performed by multiplex flow immunoassay on the PlaceIQlex platform. us Malathi L Behrends JOINT CREASER, INSURANCE MARKETING REP CHEMISTRY ORDERABLE S Final Result [facility] [address] [place] [address], [place] * MUMPS IGG (04/26/2021 3:00 PM SPRING ENCASER) Pathologist [facility] Mumps Ab IgG 1.6 >=1.1 AI 04/28/2021 5:18 PM SPRING ENCASER [facility] Blood No Phlebotomy Charged / Unknown 04/26/2021 3:00 PM SPRING ENCASER 04/27/2021 11:31 AM SPRING ENCASER Narrative [facility] - 04/28/2021 5:18 PM SPRING ENCASER <= 0.8 Negative. No detectable Mumps IgG antibody. 0.9 - 1.0 Equivocal >=1.1 Positive Antibody testing was performed by multiplex flow immunoassay on the Guroo platform. us Malathi Nelson JOINT CREASER, INSURANCE MARKETING REP IMMUNOLOGY ORDERABL ES Final Result [facility] [address] [place] [address], [place] * QUANTIFERON-TB GOLD PLUS (04/26/2021 3:00 PM SPRING ENCASER) Pathologist [facility] NIL CONTROL 0.02 <8.01 IU/mL 04/30/2021 12:52 PM SPRING ENCASER [facility] TB ANTIGEN 1 0.00 <0.35 IU/mL 04/30/2021 12:52 PM SPRING ENCASER [facility] TB ANTIGEN 2 0.00 <0.35 IU/mL 04/30/2021 12:52 PM SPRING ENCASER [facility] MITOGEN CONTROL 6.64 >0.49 IU/mL 04/30/19 12:52 PM SPRING ENCASER [facility] INTEPRETATION TB NEGATIVE NEGATIVE, NEGATIVE (TB antigen response less than 25% of internal negative control value) 04/30/2021 12:52 PM SPRING ENCASER [facility] Comment:No immune response t o Mycobacterium tuberculosis antigens was noted. M. tuberculosis infection unlikely. Blood No Phlebotomy Charged / Unknown 04/26/2021 3:00 PM SPRING ENCASER 04/27/2021 11:32 AM SPRING ENCASER Narrative [facility] - 04/30/2021 12:52 PM SPRING ENCASER A POSITIVE QUANTIFERON-TB GOLD PLUS RESULT SHOULD NOT BE THE SOLE OR DEFINITIVE BASIS FOR DETERMINING INFECTION WITH M. TUBERCULOSIS. Diagnosing or excluding tuberculosis disease, and assessing the probability of LTBI, requires a combination of epidemiological, historical, medical and diagnostic findings (e.g., acid fast bacilli (AFB) smear and culture, chest xray) that should be taken into account when interpreting QFT-Plus results. Furthermore, the magnitude of the measured gamma interferon level cannot be correlated to stage or degree of infection, level of immune responsiveness, or likelihood for progression to active disease. The Nil control adjusts for background (e.g., elevated levels of circulating gamma interferon or presence of heterophile antibodies). The Mitogen control serves as an internal positive control and verifies each specimen tested can produce a gamma interferon response. Low mitogen may occur with insufficient lymphocytes, reduced lymphocyte activity due to improper specimen handling, filling/mixing of the Mitogen tube, or inability of the patient's lymphocytes to generate gamma interferon. Infection with other Mycobacteria, including M. kansasii, M. szulgai, and M. marinum, may cause positive results. A negative QuantiFERON-TB Gold Plus result does not preclude the possibility of M. tuberculosis infection or tuberculosis disease: false negative results can be due to stage of infection (e.g., specimen obtained prior to the development of cellular immune response), co-morbid conditions which affect immune function, or other individual immunological factors. The minimum number of lymphocytes required for a reliable test result has not been established and may also be variable. The performance of the [place] format of the QuantiFERON-TB Gold Plus test has not been extensively evaluated with specimens from the following groups of individuals: 1. Individuals who have impaired or altered immune function such as those who have HIV infection or AIDS; those who have transplantation managed with immunosuppressive treatment; or others who receive immunosuppressive drugs (e.g., corticosteroids, methotrexate, azathioprine, cancer chemotherapy); and those who have other clinical conditions: diabetes, silicosis, chronic renal failure, hematological disorders (e.g., leukemia and lymphomas), and other specific malignancies (e.g., carcinoma of the head or neck and lung). 2. Individuals younger than age 17 years 3. women us Malathi Nelson JOINT CREASER, INSURANCE MARKETING REP IMMUNOLOGY ORDERABL ES Final Result [facility] [address] [place] [address], [place] * HEPATITIS B SURFACE ANTIBODY (HBSAB) (04/26/2021 3:00 PM SPRING ENCASER) HEPATITIS B SURFACE ANTIBODY <8.00 mIU/mL [facility] ARCH [id number] 04/28/2021 4:14 PM SPRING ENCASER [facility] Comment:Individual is consid ered not immune to HBV infection. Blood No Phlebotomy Charged / Unknown 04/26/2021 3:00 PM SPRING ENCASER 04/27/2021 11:31 AM SPRING ENCASER us Malathi Nelson APRN, CNP CHEMISTRY ORDERABLE S Final Result [facility] [address] [place] [address], [place] documented in this encounter Visit Diagnoses Diagnosis Encounter for pre-employment examination Health examination of defined subpopulation documented in this encounter Additional Health Concerns Infection Onset Date Last Indicated Resolved Time COVID - 19 09/07/2021 09/07/2021 09/17/2021 12:1 6 AM CDT COVID - 19 11/11/2024 11/11/2024 11/11/2024 1:11 PM CDT Respiratory Rule-Out 11/11/2024 11/11/2024 025 1:12 PM CDT Assessment Noted Time PHQ-9 Depression Total Score: 10 021 3:00 PM SPRING ENCASER documented as of this encounter Care Teams Soap Tender Relationship Specialty Start Date End Date Tatiana Tillman APRN, JOSE [address] [place] [address] PCP - General Advanced Practice Nurse 06/13/17 Provider, Unknown UNKNOWN PCP - General 11/11/24 Michel Gallardo MD [address] [id number] Consulting Physician Endocrinology 09/25/21 05/14/24 documented as of this encounter
== END 2025-01-18 15:42 | disposition home or self-care (01) ==
PROVIDERS: PCP Nurse Practitioner; Visit Provider Obstetrics & Gynecology Gynecology
DX: O09.10 Supervision of pregnancy with history of ectopic pregnancy, unspecified trimester (principal); Z3A.00 Weeks of gestation of pregnancy not specified
CPT/HCPCS: 76801; 76817

== ENCOUNTER 2025-02-11 14:29 | Outpatient (CLI) | payer OTHER, SELFPAY ==
--- NOTE | ~2025-02-11 | US_ITS ---
EXAMINATION: US OB <=14 wk fetus w TV DATE: 02/11/2025 15:19 INDICATION: Evaluate viability TECHNIQUE: Real-time transabdominal and transvaginal obstetric ultrasound. FINDINGS: No prior studies for comparison. The uterus measures 11 x 6.6 x 7.7 cm. There is an intrauterine gestational sac, with pole identified. The crown rump length measures 2.24 cm, which correlates with a estimated gestational age of 9 weeks 0 days. heart tones are identified measuring 175 BPM. IMPRESSION: 1. SL IUP with an EGA of 9 weeks, 0 days (EDC by current ultrasound of 09/16/2025). Reviewed, dictated and finalized at location I. HER MIXER IMPRESSION: 1. SL IUP with an EGA of 9 weeks, 0 days (EDC by current ultrasound of 09/17/19 26).
== END 2025-02-11 14:30 | disposition home or self-care (01) ==
PROVIDERS: PCP Nurse Practitioner; Visit Provider Obstetrics & Gynecology Gynecology
DX: O36.80X0 Pregnancy with inconclusive fetal viability, not applicable or unspecified (principal); Z3A.00 Weeks of gestation of pregnancy not specified
CPT/HCPCS: 76801; 76817